=== PATIENT | female | born 1935 | race Caucasian/White ===

== ENCOUNTER 2020-05-28 15:02 | Inpatient (IN) ==
--- NOTE | 2020-05-28 15:41 | Emergency Department Note ---
History of Present Illness General Chief complaint: Abdominal Pain Stated complaint: LLQ Abd pain Time Seen by Provider: 05/28/20 15:13 Source: patient History of Present Illness Provider complaint: Abdominal discomfort Onset (ago): hour(s) Location: abdomen Radiation: non-radiation Severity: mild Quality: + other (Discomfort) Relieved By: + none Associated symptoms: + other (Constipation for 3 days); no chest pain, no cough, no fever/chills, no headaches, no nausea/vomiting and no shortness of breath This is an 85-year-old female who presents with lower abdominal discomfort. She states it is not really a pain. She has had it all morning. She states that it is associated with constipation and she has not had a bowel movement for 3 days. She denies any nausea or vomiting, fever, chest pain, shortness of breath or urinary symptoms. She has had no cough or cold symptoms or known exposure to COVID-19. Home Medications Medication Instructions Recorded Confirmed Type atenolol 25 mg PO DAILY 04/18/18 05/14/20 History furosemide 20 mg PO DAILY 04/18/18 05/14/20 History amlodipine 2.5 mg tablet 2.5 mg PO DAILY 03/04/20 05/14/20 History aspirin 81 mg chewable tablet 81 mg PO DAILY 03/04/20 05/14/20 History clopidogrel 75 mg tablet 75 mg PO DAILY 03/04/20 05/14/20 History methenamine hippurate 1 gram tablet 1 g PO BID 03/04/20 05/14/20 History multivitamin 1 tab PO DAILY 03/04/20 05/14/20 History polyethylene glycol 3350 8.5 gram 8.5 g PO DAILY PRN 03/04/20 05/14/20 History oral powder packet pravastatin 10 mg tablet 10 mg PO DAILY 03/04/20 05/14/20 History conjugated estrogens 0.625 mg/gram 0.3125 mg VAGINAL DAILY #30 g 05/14/20 Rx vaginal cream conjugated estrogens 0.625 mg/gram 0.3125 mg VAGINAL DAILY #30 g 05/14/20 05/14/20 Rx vaginal cream Allergies Allergy/AdvReac Type Severity Reaction Status Date / Time codeine Allergy Unknown Verified 05/14/20 10:07 Penicillins Allergy Joint Pain Unverified 05/14/20 10:07 simvastatin Allergy Verified 05/14/20 10:07 clams AdvReac Mild Nausea Verified 05/14/20 10:07 tramadol AdvReac Unknown Unknown Verified 05/14/20 10:07 wine(red) Allergy Severe Unknown Uncoded 05/14/20 10:07 Past Med/Surg History Medical History (Updated 05/28/20 @ 17:27 by Luis Daniel Taylor MD) CAD (coronary artery disease) HLD (hyperlipidemia) HTN (hypertension) Hyponatremia Stroke No residual deficits Surgical History Status post appendectomy Status post cardiac pacemaker procedure Status post hysterectomy Family History Other Coronary heart disease Social History Smoking Status: Never smoker Hx Alcohol Use: Yes (1 drink of bourbon per week) Hx Substance Use: No Preferred Language: Maori Communication Ability: Effective Beliefs That Will Affect Care: None Current Living Situation: Other Current Living Situation Comment: currently staying with [facility] but lives in independent living apartment in [place] Feels Safe at Home: Yes Assistive Devices: Walker Review of Systems See HPI for pertinent positives & negatives. and A total of 10 systems reviewed and were otherwise negative Physical Exam Vital Signs Vital Signs - 24 hr 05/28/20 15:07 05/28/20 15:12 05/28/20 15:15 Temperature 36.7 C Temperature Source Oral Pulse Rate 69 76 69 Pulse Rate [Apical] Pulse Rate from SpO2 Sensor 68 Respiratory Rate 18 18 20 Respiratory Effort / Characteristics Non-Labored Spontaneous Respiratory Depth Normal Respiratory Pattern Regular Blood Pressure 135/59 L 135/59 L Blood Pressure [Left Arm] Blood Pressure Mean 97 84 Blood Pressure Mean [Left Arm] Pulse Oximetry 98 100 Oxygen Delivery Method Room Air Sepsis Recent Fever Within 48 Hours No Sepsis New/Unexplained Change in Mental Status No Sepsis Action Taken by Nursing No Action Required 05/28/20 15:21 05/28/20 15:30 05/28/20 16:00 Temperature Temperature Source Pulse Rate 69 69 70 Pulse Rate [Apical] 69 Pulse Rate from SpO2 Sensor 80 Respiratory Rate 20 17 22 Respiratory Effort / Characteristics Non-Labored Spontaneous Respiratory Depth Normal Respiratory Pattern Regular Blood Pressure Blood Pressure [Left Arm] 135/59 L Blood Pressure Mean Blood Pressure Mean [Left Arm] 84 Pulse Oximetry 100 99 Oxygen Delivery Method Room Air Sepsis Recent Fever Within 48 Hours Sepsis New/Unexplained Change in Mental Status Sepsis Action Taken by Nursing 05/28/20 16:30 05/28/20 17:07 05/28/20 17:11 Temperature Temperature Source Pulse Rate 68 73 75 Pulse Rate [Apical] Pulse Rate from SpO2 Sensor Respiratory Rate 15 17 17 Respiratory Effort / Characteristics Respiratory Depth Respiratory Pattern Blood Pressure 117/42 L Blood Pressure [Left Arm] Blood Pressure Mean 60 Blood Pressure Mean [Left Arm] Pulse Oximetry Oxygen Delivery Method Sepsis Recent Fever Within 48 Hours Sepsis New/Unexplained Change in Mental Status Sepsis Action Taken by Nursing 05/28/20 17:30 05/28/20 17:31 Temperature Temperature Source Pulse Rate 68 67 Pulse Rate [Apical] Pulse Rate from SpO2 Sensor 67 67 Respiratory Rate 21 18 Respiratory Effort / Characteristics Respiratory Depth Respiratory Pattern Blood Pressure 122/59 L Blood Pressure [Left Arm] Blood Pressure Mean 90 Blood Pressure Mean [Left Arm] Pulse Oximetry 97 97 Oxygen Delivery Method Sepsis Recent Fever Within 48 Hours Sepsis New/Unexplained Change in Mental Status Sepsis Action Taken by Nursing Constitutional: Vital signs reviewed. Eyes: Pupils are equal round reactive to light. Conjunctiva are noninjected. ENT: Pharynx is clear without erythema or exudate. Mucous membranes are moist. Neck supple without meningeal signs. Respiratory: Clear to auscultation bilaterally. Breath sounds are equal bilaterally. Cardiovascular: Regular rate and rhythm. No rubs or gallops. GI: Soft, nondistended with very mild suprapubic tenderness. No guarding. Bowel sounds are present. Musculoskeletal: No peripheral edema. No lower extremity tenderness. Integumentary: No cyanosis. or jaundice. Neurological: The patient is awake and alert. No focal deficits. Psychiatric: Normal affect. Not anxious appearing. Critical Care Time Critical Care Time: Yes Total Critical Care Time: 40 I have personally spent approximately 40 minutes of critical care time in the direct management of this patient. This includes bedside care, interpretation of diagnostic studies, and testing, discussion with consultants, patient, and family members, and other required patient management activities. These minutes are in excess of all separately billable procedures. Medical Decision Making Differential Diagnosis Constipation, fecal impaction, ileus, diverticulitis, obstipation Medical Records Attestation: I reviewed the patient's medical records. I did perform a limited focused review of portions of the patient's old chart on the electronic medical record. The patient has had no recent pertinent visits to this hospital. Home Medications Current Medication List: was personally reviewed by me Laboratory Data Attestation: I reviewed the patient's lab results. Result diagrams: 05/28/20 16:50 05/28/20 16:50 Lab Results 05/28/20 05/28/20 05/28/20 Range/Units 16:50 16:50 17:32 WBC 7.86 (4.8-10.8) K/uL RBC 2.23 L (4.2-5.4) M/uL Hgb 5.0 L* (12.0-16.0) g/dL Hct 17.0 L* (37-47) % MCV 76.2 L (80-100) fL MCH 22.4 L (25-34) pg MCHC 29.4 L (32-36) g/dL RDW Std Deviation 43.3 (36.4-46.3) fL RDW Coeff of Dorota 15.4 H (11.5-14.5) % Plt Count 363 (130-400) K/uL MPV 8.6 (7.4-10.4) fL Immature Gran % (Auto) 0.3 % Neut % (Auto) 66.7 % Lymph % (Auto) 15.5 % Gibson % (Auto) 13.5 % Eos % (Auto) 3.2 % Baso % (Auto) 0.8 % Neut # (Auto) 5.25 (1.4-6.5) K/uL Lymph # (Auto) 1.22 (1.2-3.4) K/uL Gibson # (Auto) 1.06 H (0.11-0.59) K/uL Eos # (Auto) 0.25 (0-0.5) K/uL Baso # (Auto) 0.06 (0-0.2) K/uL Immature Gran # (Auto) 0.02 (0.00-0.02) K/uL Polychromasia 1+ Hypochromasia Present Microcytosis Present Sodium 135 L (136-145) mmol/L Potassium 4.2 (3.5-5.1) mmol/L Chloride 105 (98-107) mmol/L Carbon Dioxide 25 (21-32) mmol/L Anion Gap 5.0 (3-11) BUN 17 (7-18) mg/dl Creatinine 0.68 (0.6-1.2) mg/dl Est Cr Clr Drug Dosing 54.4 ml/min Est GFR ( Amer) 91.2 Est GFR (Non-Af Amer) 78.6 BUN/Creatinine Ratio 25.8 H (10-20) Glucose 103 H (70-99) mg/dl Calcium 8.5 (8.5-10.1) mg/dl Total Bilirubin 0.2 (0.2-1) mg/dl AST 20 (15-37) U/L ALT 11 L (12-78) U/L Alkaline Phosphatase 55 (45-117) U/L Total Protein 6.0 L (6.4-8.2) gm/dl Albumin 3.0 L (3.4-5.0) gm/dl Globulin 3.0 (2.5-4.0) gm/dl Albumin/Globulin Ratio 1.0 (0.9-2) Lipase 81 (73-393) U/L Specimen Hemolysis COVID-19 Eval [facility] 05/28/20 Range/Units 17:34 WBC (4.8-10.8) K/uL RBC (4.2-5.4) M/uL Hgb (12.0-16.0) g/dL Hct (37-47) % MCV (80-100) fL MCH (25-34) pg MCHC (32-36) g/dL RDW Std Deviation (36.4-46.3) fL RDW Coeff of Dorota (11.5-14.5) % Plt Count (130-400) K/uL MPV (7.4-10.4) fL Immature Gran % (Auto) % Neut % (Auto) % Lymph % (Auto) % Gibson % (Auto) % Eos % (Auto) % Baso % (Auto) % Neut # (Auto) (1.4-6.5) K/uL Lymph # (Auto) (1.2-3.4) K/uL Gibson # (Auto) (0.11-0.59) K/uL Eos # (Auto) (0-0.5) K/uL Baso # (Auto) (0-0.2) K/uL Immature Gran # (Auto) (0.00-0.02) K/uL Polychromasia Hypochromasia Microcytosis Sodium (136-145) mmol/L Potassium (3.5-5.1) mmol/L Chloride (98-107) mmol/L Carbon Dioxide (21-32) mmol/L Anion Gap (3-11) BUN (7-18) mg/dl Creatinine (0.6-1.2) mg/dl Est Cr Clr Drug Dosing ml/min Est GFR ( Amer) Est GFR (Non-Af Amer) BUN/Creatinine Ratio (10-20) Glucose (70-99) mg/dl Calcium (8.5-10.1) mg/dl Total Bilirubin (0.2-1) mg/dl AST (15-37) U/L ALT (12-78) U/L Alkaline Phosphatase (45-117) U/L Total Protein (6.4-8.2) gm/dl Albumin (3.4-5.0) gm/dl Globulin (2.5-4.0) gm/dl Albumin/Globulin Ratio (0.9-2) Lipase (73-393) U/L Specimen Hemolysis COVID-19 Eval Order Crossmatch See Detail Imaging Data Radiologist's Impression: CT SCAN OF THE ABDOMEN AND PELVIS WITHOUT CONTRAST CLINICAL HISTORY: Lower abdominal pain COMPARISON STUDY: 05/07/2020 TECHNIQUE: CT scan of the abdomen and pelvis was performed from the lung bases to the proximal femurs. Images are reviewed in the axial, sagittal, and coronal planes. IV contrast was not administered for this examination. A dose lowering technique was utilized adhering to the principles of ALARA. CT DOSE: 979.25 mGycm FINDINGS: Lower chest: There is a hiatal hernia. There are dependent atelectatic changes. Liver: There are several subcentimeter hepatic hypodense, likely representing cysts. Gallbladder: Unremarkable. Spleen: Normal in size and attenuation. Pancreas: Unremarkable. Adrenal glands: Unremarkable. Kidneys: No renal, ureteral, or bladder calculi identified. Bowel: There are no transition zones indicate bowel obstruction. There is no evidence of acute diverticulitis. There are no findings to indicate acute appendicitis. Peritoneum: There is no intraperitoneal free air or abdominal ascites. Vasculature: The abdominal aorta is normal in course and caliber. Adenopathy: None. Pelvic viscera: There is gas in the bladder, likely iatrogenic. The uterus appears surgically absent. Skeletal structures: There is a prominent scoliosis. Degenerative changes are present within the spine. There is an old posterior back deformities left symphysis pubis. IMPRESSION: 1. No acute abdominal or pelvic findings 2. No evidence of bowel obstruction. No evidence of free air 3. No renal, ureteral, or bladder calculi identified 4. No acute inflammatory changes 5. Gas within the bladder, statistically iatrogenic. Clinical correlation a dvocated. ACT 112: Negative or not required by law. Electronically signed by: Timbo Zapata M.D. 05/28/2020 5:17 PM Dictated: 05/28/201711 Transcribed: 05/28/201711 ECG Data Attestation: I personally reviewed and interpreted this ECG as follows: Indication: + abdominal pain Rate (beats per minute): 69 Rhythm: + other (Paced rhythm) ECG Intervals/blocks: + Normal QT ECG Findings: + Q waves; no PVCs MDM Narrative I did evaluate the patient as noted above. Patient is presenting with constipation for 3 days with some mild discomfort in the lower abdomen. IV access was established. I did place an order for continuous cardiac monitoring. The monitor showed normal sinus rhythm at a rate of 68 bpm. I did order and personally review the patient's 12-lead EKG as described above. She has an atrial paced rhythm. I did order and review the patient's blood work as noted in the electronic medical record. Chemistries are unremarkable. Hemoglobin was reported as 5. White count is within normal limits. The patient is on Plavix and aspirin. Further history was obtained from the daughter who is now at the bedside. She states that the patient has been lethargic and a little bit more confused than usual over the past week. I did perform a rectal examination which showed guaiac positive melanotic stool. The patient was given IV Protonix and started on an IV drip. I did obtain informed consent from the patient's daughter, who is her healthcare proxy, for transfusion of 2 units packed RBCs. I did order a CT of the abdomen and pelvis. I did review the images myself as well as the radiology report as described above. There is no evidence of acute intra-abdominal process. I did discuss case with the hospitalist and senior case manager. She remains hemodynamically stable. Impression & Plan Acute upper gastrointestinal bleeding, Anemia due to acute blood loss Discharge Plan Visit Data Chief Complaint: Abdominal Pain Stated Complaint: LLQ Abd pain ED Provider: Luis Daniel Taylor Discharge Problem: Acute upper gastrointestinal bleeding, Anemia due to acute blood loss Patient Disposition: Being Evaluated by Hospitalist Forms Stand Alone Forms: [facility] Prescriptions Prescriptions: No Action Premarin 0.625 mg/gram cream 0.3125 mg vaginal DAILY Qty: 30 RF: 11 amlodipine 2.5 mg tablet 2.5 mg PO DAILY RF: 0 aspirin 81 mg tablet,chewable 81 mg PO DAILY RF: 0 clopidogrel 75 mg tablet 75 mg PO DAILY RF: 0 methenamine hippurate 1 gram tablet 1 g PO BID RF: 0 multivitamin Tablet 1 tab PO DAILY RF: 0 polyethylene glycol 3350 8.5 gram powder in packet 8.5 g PO DAILY PRNRF: 0 pravastatin 10 mg tablet 10 mg PO DAILY RF: 0 Premarin 0.625 mg/gram cream 0.3125 mg vaginal DAILY Qty: 30 RF: 11 atenolol 25 mg Tablet 25 mg PO DAILY RF: 0 furosemide 20 mg Tablet 20 mg PO DAILY RF: 0 Referrals Referrals: Sumit Reno [facility] [Primary Care Provider] -
[2020-05-28 17:14] LABS: Mean Corpuscular Hemoglobin 22.4 pg (25-34); Mean Corpuscular Hgb Conc 29.4 g/dL (32-36); Mean Corpuscular Volume 76.2 fL (80-100); Mean Platelet Volume 8.6 fL (7.4-10.4); Platelet Count 363 K/uL (130-400); RDW Coefficient of Variation 15.4 % (11.5-14.5); RDW Standard Deviation 43.3 fL (36.4-46.3); Red Blood Count 2.23 M/uL (4.2-5.4); White Blood Count 7.86 K/uL (4.8-10.8)
--- NOTE | 2020-05-28 17:18 | CT Scan Report ---
CT SCAN OF THE ABDOMEN AND PELVIS WITHOUT CONTRAST CLINICAL HISTORY: Lower abdominal pain COMPARISON STUDY: 05/07/2020 TECHNIQUE: CT scan of the abdomen and pelvis was performed from the lung bases to the proximal femurs . Images are reviewed in the axial, sagittal, and coronal planes. IV contrast was not administered fo r this examination. A dose lowering technique was utilized adhering to the principles of ALARA. CT DOSE: 979.25 mGycm FINDINGS: Lower chest: There is a hiatal hernia. There are dependent atelectatic changes. Liver: There are several subcentimeter hepatic hypodense, likely representing cysts. Gallbladder: Unremarkable. Spleen: Normal in size and attenuation. Pancreas: Unremarkable. Adrenal glands: Unremarkable. Kidneys: No renal, ureteral, or bladder calculi identified. Bowel: There are no transition zones indicate bowel obstruction. There is no evidence of acute divert iculitis. There are no findings to indicate acute appendicitis. Peritoneum: There is no intraperitoneal free air or abdominal ascites. Vasculature: The abdominal aorta is normal in course and caliber. Adenopathy: None. Pelvic viscera: There is gas in the bladder, likely iatrogenic. The uterus appears surgically absent. Skeletal structures: There is a prominent scoliosis. Degenerative changes are present within the spin e. There is an old posterior back deformities left symphysis pubis. IMPRESSION: 1. No acute abdominal or pelvic findings 2. No evidence of bowel obstruction. No evidence of free air 3. No renal, ureteral, or bladder calculi identified 4. No acute inflammatory changes 5. Gas within the bladder, statistically iatrogenic. Clinical correlation advocated. ACT 112: Negative or not required by law. Electronically signed by: Timbo Zapata M.D. 05/28/2020 5:17 PM
[2020-05-28] MEDS ORDERED: SODIUM CHLORIDE 0.9% 250 ML IV PRN ×3 (17:22→20:41)
[2020-05-28] MEDS ORDERED: PANTOprazole 80 MG in DEXTROSE 5% 100 ML IV SCH (17:30)
[2020-05-28 17:34] LABS: Basophils # (auto) 0.06 K/uL (0-0.2); Basophils % (auto) 0.8 %; Eosinophils # (auto) 0.25 K/uL (0-0.5); Eosinophils % (auto) 3.2 %; Hypochromasia Present; Immature Granulocytes # (auto) 0.02 K/uL (0.00-0.02); Immature Granulocytes % (auto) 0.3 %; Lymphocytes # (auto) 1.22 K/uL (1.2-3.4); Lymphocytes % (auto) 15.5 %; Microcytosis Present; Monocytes # (auto) 1.06 K/uL (0.11-0.59); Monocytes % (auto) 13.5 %; Neutrophils # (auto) 5.25 K/uL (1.4-6.5); Neutrophils % (auto) 66.7 %; Polychromasia 1+
[2020-05-28 17:40] LABS: BUN Creatinine Ratio 25.8 (10-20); Bilirubin,Total 0.2 mg/dl (0.2-1); Calcium 8.5 mg/dl (8.5-10.1); Creatinine Clr Calc Pharmacy 54.4 ml/min; Est GFR (African American) 91.2; Est GFR (Non-African American) 78.6; Potassium 4.2 mmol/L (3.5-5.1)
--- NOTE | 2020-05-28 17:55 | History & Physical Report ---
Date of Service May 28, 2020 Assessment & Plan (1) Anemia due to acute blood loss: -Admit to med surg with tele -Hold antiplatelets- currently taking both asa and plavix, as well as ibuprofen for frozen shoulder per med rec from [facility] - unsure why still taking plavix since CVA was 2 years ago. Will need to discuss with neurology. Consider consult -dc all NSAIDs permanently -Hgb= 5.0, Hct =17 -PRBCs x1 ordered in the ER, will order total of 2 units for now, follow cbc after both transfusions complete and follow am labs -Protonix gtt -Iron studies added on -GI consulted, Dr. Shanks- last colonoscopy within the past 10 years, noted as normal, done in [place]. Has never had EGD per knowledge -Allow clears for now, NPO except sips and chips after midnight in case of need for EGD tomorrow (2) Dysarthria: - s/p CVA in Apr 2018 - chronic, slightly slowed and minimally slurred on admission, daughter reports currently at baseline. - Does not have local neurologist as she just moved here from [place] in Dec 2019. (3) Hypertension: - Holding home antihypertensives with blood pressure borderline on admission. (4) CAD (coronary artery disease): Review of previous scanned in records shows a h/o acute WI with stent placement in RCA in 1999 - Hold asa for now secondary to gi bleed as above -holding atenolol as above continue statin (5) CVA (cerebral vascular accident): -History of such, on aspirin and Plavix therapy from stroke which is noted in EMR from Apr 2018. Will hold antiplatelet medications At that time, Neuro had recommended CHANGING ASA to Plavix--> it seems she has remained on DAPT since then -recommend restarting Plavix only after GIB resolves (6) Expressive aphasia: - Secondary to hx of CVA as above (7) Chronic UTI: - Follows with Dr. 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 Her daughter is present with her at bedside and supports the history. Patient notes that she has had been having abdominal pain for the past week or so, and has also been chronically constipated, and cannot recall the last time that she had a bowel movement. Per ER report patient is guaiac positive with melena on rectal exam. Patient denies any diminished appetite, oral intake is fine, no nausea or vomiting. Patient's daughter had her home for [place] and at that point time the patient was not near as pale as she is today. She has been taking medications including aspirin 81 mg, Plavix 75 mg and at least 400 mg of ibuprofen a day for right frozen shoulder, occasionally 600 mg daily. Patient typically ambulates with the use of a walker but when she is not feeling up to it uses a wheelchair. Patient's daughter had her home for [place] and at that point time the patient was not near as pale as she is today. She admits to lightheadedness and dizziness when going from a sitting to standing position. Patient reports that her last colonoscopy was within the past 10 years but had this done in [place], it was normal to her recollection. Patient is new to the area as she just moved here from [place] in December 2019 and follows with PCP at [facility]. Hemoglobin was found to be 5.0 in the ER, transfusion PRBC x2 units ordered. Likely an upper GI bleed from use of NSAIDs plus antiplatelet medications. CT of the abdomen/pelvis negative for acute findings. Consult GI. Allergies Allergy/AdvReac Type Severity Reaction Status Date / Time codeine Allergy Unknown . Verified 05/28/20 18:01 Penicillins Allergy Joint Pain Verified 05/28/20 18:01 simvastatin Allergy . Verified 05/28/20 18:01 clams AdvReac Mild Nausea Verified 05/28/20 18:01 tramadol AdvReac Unknown Unknown Verified 05/28/20 18:01 wine(red) Allergy Severe Unknown Uncoded 05/28/20 18:01 Home Medications Medication Instructions Recorded Confirmed Type atenolol 25 mg PO DAILY 04/18/18 05/28/20 History furosemide 20 mg PO DAILY 04/18/18 05/28/20 History amlodipine 2.5 mg tablet 2.5 mg PO DAILY 03/04/20 05/28/20 History aspirin 81 mg chewable tablet 81 mg PO DAILY 03/04/20 05/28/20 History clopidogrel 75 mg tablet 75 mg PO DAILY 03/04/20 05/28/20 History methenamine hippurate 1 gram tablet 1 g PO BID 03/04/20 05/28/20 History multivitamin 1 tab PO DAILY 03/04/20 05/28/20 History polyethylene glycol 3350 8.5 gram 8.5 g PO DAILY 03/04/20 05/28/20 History oral powder packet acetaminophen 1,000 mg PO TID 05/28/20 05/28/20 History docusate sodium [Colace] 100 mg PO DAILY PRN 05/28/20 05/28/20 History guaifenesin 200 mg PO Q8H PRN 05/28/20 05/28/20 History ibuprofen 200 mg PO TID 05/28/20 05/28/20 History peg 400-propylene glycol [Systane 1 drp OPB QAM 05/28/20 05/28/20 History (propylene glycol)] Past Med/Surg History Medical History (Updated 05/28/20 @ 21:10 by Marichuy Reed MD) Atrophic vaginitis CAD (coronary artery disease) HLD (hyperlipidemia) HTN (hypertension) Hyponatremia Incomplete bladder emptying Stroke No residual deficits Surgical History Status post appendectomy Status post cardiac pacemaker procedure Status post hysterectomy Family History Other Coronary heart disease Social History Smoking Status: Never smoker Hx Alcohol Use: No Hx Substance Use: No Preferred Language: Greek Communication Ability: Effective Beliefs That Will Affect Care: None Current Living Situation: Senior Care Current Living Situation Comment: currently staying with dtgr but lives in independent living apartment in [place] Feels Safe at Home: Yes Safety Concerns: Feels Safe At This Time Assistive Devices: Walker Review of Systems Review of Systems: Constitutional: No fever, sweats or chills, + lightheadedness and dizziness with standing, + lethargy, + weakness Eyes: No diplopia, no worsening or blurred vision ENT: normal hearing, no trouble swallowing Respiratory: No cough, sputum, dyspnea at rest or on exertion Cardiovascular: No chest pain, tightness or palpitations Abdomen: + Pain, + constipation, no nausea, vomiting, diarrhea, Musculoskeletal: + Right frozen shoulder causing chronic pain in this area, no other joint pain, calf pain, or swelling Neurologic: + Generalized weakness, no numbness/tingling,+ balance problems uses a walker at baseline Psychiatric: No anxiety or depression Skin: No rash or itch Physical Exam Physical Exam: General: awake, alert, no apparent distress, + pallor Head: Normocephalic, atraumatic ENT: PERRL, EOMI, + conjunctival pallor, no pharyngeal exudate, mucous membranes slightly dry Chest: Clear to auscultation, on room air, no adventitious breath sounds Cardiac: Regular rate and rhythm, no murmur, no JVD, normal peripheral pulses, good capillary refill Abdominal: NABS x 4 quadrants, soft, nondistended, + tender to palpation in suprapubic region, no rebound or guarding Extremities: Normal inspection, 1+ nonpitting peripheral edema BLE, no erythema, calfs nontender to palpation Psych: Normal mood and affect Neuro: AAO x 3, slowed speech, slightly slurred but clear and daughter reports that this is at baseline s/p cva, strength intact bilaterally and rated 5/5, no gross motor deficits, no peripheral sensory deficits Results & Data Results & Data ([facility]) Vital Signs (Past 12 Hours) Vital Signs Temp Pulse Pulse Resp BP BP Pulse Ox 05/28/20 17:31 67 18 122/59 L 97 05/28/20 17:30 68 21 97 05/28/20 17:11 75 17 117/42 L 05/28/20 17:07 73 17 05/28/20 16:30 68 15 05/28/20 16:00 70 22 99 05/28/20 15:30 69 17 05/28/20 15:21 69 69 20 135/59 L 100 05/28/20 15:15 36.7 C 69 20 135/59 L 100 05/28/20 15:12 76 18 98 05/28/20 15:07 69 18 135/59 L Laboratory Results 05/28/20 05/28/20 05/28/20 Range/Units 19:05 19:05 18:10 WBC (4.8-10.8) K/uL RBC (4.2-5.4) M/uL Hgb (12.0-16.0) g/dL Hct (37-47) % MCV (80-100) fL MCH (25-34) pg MCHC (32-36) g/dL RDW Std Deviation (36.4-46.3) fL RDW Coeff of Dorota (11.5-14.5) % Plt Count (130-400) K/uL MPV (7.4-10.4) fL Immature Gran % (Auto) % Neut % (Auto) % Lymph % (Auto) % Nye % (Auto) % Eos % (Auto) % Baso % (Auto) % Neut # (Auto) (1.4-6.5) K/uL Lymph # (Auto) (1.2-3.4) K/uL [place]ye # (Auto) (0.11-0.59) K/uL Eos # (Auto) (0-0.5) K/uL Baso # (Auto) (0-0.2) K/uL Immature Gran # (Auto) (0.00-0.02) K/uL Polychromasia Hypochromasia Microcytosis PT (9.0-12.0) Seconds INR (0.9-1.1) APTT (21.0-31.0) Seconds PTT Ratio Sodium (136-145) mmol/L Potassium (3.5-5.1) mmol/L Chloride (98-107) mmol/L Carbon Dioxide (21-32) mmol/L Anion Gap (3-11) BUN (7-18) mg/dl Creatinine (0.6-1.2) mg/dl Est Cr Clr Drug Dosing ml/min Est GFR ( Amer) Est GFR (Non-Af Amer) BUN/Creatinine Ratio (10-20) Glucose (70-99) mg/dl Calcium (8.5-10.1) mg/dl Iron Cancelled 17 L (35-150) mcg/dl Transferrin 287 (200-360) mg/dl Total Bilirubin (0.2-1) mg/dl AST (15-37) U/L ALT (12-78) U/L Alkaline Phosphatase (45-117) U/L Total Protein (6.4-8.2) gm/dl Albumin (3.4-5.0) gm/dl Globulin (2.5-4.0) gm/dl Albumin/Globulin Ratio (0.9-2) Lipase (73-393) U/L Specimen Hemolysis COVID-19 Eval Order SARS-CoV-2, RNA, NAAT (NEGATIVE) Blood Type Blood Type Recheck Antibody Screen Crossmatch 05/28/20 05/28/20 05/28/20 Range/Units 18:06 17:34 17:34 WBC (4.8-10.8) K/uL RBC (4.2-5.4) M/uL Hgb (12.0-16.0) g/dL Hct (37-47) % MCV (80-100) fL MCH (25-34) pg MCHC (32-36) g/dL RDW Std Deviation (36.4-46.3) fL RDW Coeff of Dorota (11.5-14.5) % Plt Count (130-400) K/uL MPV (7.4-10.4) fL Immature Gran % (Auto) % Neut % (Auto) % Lymph % (Auto) % [place] % (Auto) % Eos % (Auto) % Baso % (Auto) % Neut # (Auto) (1.4-6.5) K/uL Lymph # (Auto) (1.2-3.4) K/uL Nye # (Auto) (0.11-0.59) K/uL Eos # (Auto) (0-0.5) K/uL Baso # (Auto) (0-0.2) K/uL Immature Gran # (Auto) (0.00-0.02) K/uL Polychromasia Hypochromasia Microcytosis PT 11.5 (9.0-12.0) Seconds INR 1.1 (0.9-1.1) APTT 29.3 (21.0-31.0) Seconds PTT Ratio 1.1 Sodium (136-145) mmol/L Potassium (3.5-5.1) mmol/L Chloride (98-107) mmol/L Carbon Dioxide (21-32) mmol/L Anion Gap (3-11) BUN (7-18) mg/dl Creatinine (0.6-1.2) mg/dl Est Cr Clr Drug Dosing ml/min Est GFR ( Amer) Est GFR (Non-Af Amer) BUN/Creatinine Ratio (10-20) Glucose (70-99) mg/dl Calcium (8.5-10.1) mg/dl Iron (35-150) mcg/dl Transferrin (200-360) mg/dl Total Bilirubin (0.2-1) mg/dl AST (15-37) U/L ALT (12-78) U/L Alkaline Phosphatase (45-117) U/L Total Protein (6.4-8.2) gm/dl Albumin (3.4-5.0) gm/dl Globulin (2.5-4.0) gm/dl Albumin/Globulin Ratio (0.9-2) Lipase (73-393) U/L Specimen Hemolysis COVID-19 Eval Order SARS-CoV-2, RNA, NAAT (NEGATIVE) Blood Type O Positive Blood Type Recheck O Positive Antibody Screen NEGATIVE Crossmatch See Detail 05/28/20 05/28/20 05/28/20 Range/Units 17:32 17:32 16:50 WBC 7.86 (4.8-10.8) K/uL RBC 2.23 L (4.2-5.4) M/uL Hgb 5.0 L* (12.0-16.0) g/dL Hct 17.0 L* (37-47) % MCV 76.2 L (80-100) fL MCH 22.4 L (25-34) pg MCHC 29.4 L (32-36) g/dL RDW Std Deviation 43.3 (36.4-46.3) fL RDW Coeff of Dorota 15.4 H (11.5-14.5) % Plt Count 363 (130-400) K/uL MPV 8.6 (7.4-10.4) fL Immature Gran % (Auto) 0.3 % Neut % (Auto) 66.7 % Lymph % (Auto) 15.5 % [place]ye % (Auto) 13.5 % Eos % (Auto) 3.2 % Baso % (Auto) 0.8 % Neut # (Auto) 5.25 (1.4-6.5) K/uL Lymph # (Auto) 1.22 (1.2-3.4) K/uL [place]ye # (Auto) 1.06 H (0.11-0.59) K/uL Eos # (Auto) 0.25 (0-0.5) K/uL Baso # (Auto) 0.06 (0-0.2) K/uL Immature Gran # (Auto) 0.02 (0.00-0.02) K/uL Polychromasia 1+ Hypochromasia Present Microcytosis Present PT (9.0-12.0) Seconds INR (0.9-1.1) APTT (21.0-31.0) Seconds PTT Ratio Sodium (136-145) mmol/L Potassium (3.5-5.1) mmol/L Chloride (98-107) mmol/L Carbon Dioxide (21-32) mmol/L Anion Gap (3-11) BUN (7-18) mg/dl Creatinine (0.6-1.2) mg/dl Est Cr Clr Drug Dosing ml/min Est GFR ( Amer) Est GFR (Non-Af Amer) BUN/Creatinine Ratio (10-20) Glucose (70-99) mg/dl Calcium (8.5-10.1) mg/dl Iron (35-150) mcg/dl Transferrin (200-360) mg/dl Total Bilirubin (0.2-1) mg/dl AST (15-37) U/L ALT (12-78) U/L Alkaline Phosphatase (45-117) U/L Total Protein (6.4-8.2) gm/dl Albumin (3.4-5.0) gm/dl Globulin (2.5-4.0) gm/dl Albumin/Globulin Ratio (0.9-2) Lipase (73-393) U/L Specimen Hemolysis COVID-19 Eval Order Covid19 [facility] SARS-CoV-2, RNA, NAAT NEGATIVE (NEGATIVE) Blood Type Blood Type Recheck Antibody Screen Crossmatch 05/28/20 Range/Units 16:50 WBC (4.8-10.8) K/uL RBC (4.2-5.4) M/uL Hgb (12.0-16.0) g/dL Hct (37-47) % MCV (80-100) fL MCH (25-34) pg MCHC (32-36) g/dL RDW Std Deviation (36.4-46.3) fL RDW Coeff of Dorota (11.5-14.5) % Plt Count (130-400) K/uL MPV (7.4-10.4) fL Immature Gran % (Auto) % Neut % (Auto) % Lymph % (Auto) % [place] % (Auto) % Eos % (Auto) % Baso % (Auto) % Neut # (Auto) (1.4-6.5) K/uL Lymph # (Auto) (1.2-3.4) K/uL Nye # (Auto) (0.11-0.59) K/uL Eos # (Auto) (0-0.5) K/uL Baso # (Auto) (0-0.2) K/uL Immature Gran # (Auto) (0.00-0.02) K/uL Polychromasia Hypochromasia Microcytosis PT (9.0-12.0) Seconds INR (0.9-1.1) APTT (21.0-31.0) Seconds PTT Ratio Sodium 135 L (136-145) mmol/L Potassium 4.2 (3.5-5.1) mmol/L Chloride 105 (98-107) mmol/L Carbon Dioxide 25 (21-32) mmol/L Anion Gap 5.0 (3-11) BUN 17 (7-18) mg/dl Creatinine 0.68 (0.6-1.2) mg/dl Est Cr Clr Drug Dosing 54.4 ml/min Est GFR ( Amer) 91.2 Est GFR (Non-Af Amer) 78.6 BUN/Creatinine Ratio 25.8 H (10-20) Glucose 103 H (70-99) mg/dl Calcium 8.5 (8.5-10.1) mg/dl Iron (35-150) mcg/dl Transferrin (200-360) mg/dl Total Bilirubin 0.2 (0.2-1) mg/dl AST 20 (15-37) U/L ALT 11 L (12-78) U/L Alkaline Phosphatase 55 (45-117) U/L Total Protein 6.0 L (6.4-8.2) gm/dl Albumin 3.0 L (3.4-5.0) gm/dl Globulin 3.0 (2.5-4.0) gm/dl Albumin/Globulin Ratio 1.0 (0.9-2) Lipase 81 (73-393) U/L Specimen Hemolysis COVID-19 Eval Order SARS-CoV-2, RNA, NAAT (NEGATIVE) Blood Type Blood Type Recheck Antibody Screen Crossmatch Diagnostic Findings CT SCAN OF THE ABDOMEN AND PELVIS WITHOUT CONTRAST CLINICAL HISTORY: Lower abdominal pain COMPARISON STUDY: 05/07/2020 TECHNIQUE: CT scan of the abdomen and pelvis was performed from the lung bases to the proximal femurs. Images are reviewed in the axial, sagittal, and coronal planes. IV contrast was not administered for this examination. A dose lowering technique was utilized adhering to the principles of ALARA. CT DOSE: 979.25 mGycm FINDINGS: Lower chest: There is a hiatal hernia. There are dependent atelectatic changes. Liver: There are several subcentimeter hepatic hypodense, likely representing cysts. Gallbladder: Unremarkable. Spleen: Normal in size and attenuation. Pancreas: Unremarkable. Adrenal glands: Unremarkable. Kidneys: No renal, ureteral, or bladder calculi identified. Bowel: There are no transition zones indicate bowel obstruction. There is no evidence of acute diverticulitis. There are no findings to indicate acute appendicitis. Peritoneum: There is no intraperitoneal free air or abdominal ascites. Vasculature: The abdominal aorta is normal in course and caliber. Adenopathy: None. Pelvic viscera: There is gas in the bladder, likely iatrogenic. The uterus appears surgically absent. Skeletal structures: There is a prominent scoliosis. Degenerative changes are present within the spine. There is an old posterior back deformities left symphysis pubis. IMPRESSION: 1. No acute abdominal or pelvic findings 2. No evidence of bowel obstruction. No evidence of free air 3. No renal, ureteral, or bladder calculi identified 4. No acute inflammatory changes 5. Gas within the bladder, statistically iatrogenic. Clinical correlation advocated. Code Status & VTE Plan Code Status DNR/DNI-discussed with the patient and her daughter at bedside Supervising Physician Co-Signing Physician Notes PA Supervision Note: I personally saw and examined the patient. I verified all vega points and agree with PRASHANT Laughlin with the following exceptions and/or additions: Pt is an 85 yo female with a h/o CAD s/p RCA stent in 1999, PPM for symptomatic bradycardia, CVA, HTN, recurrent UTI, here with worsening lethargy, constipation x 3 days, increased confusion as per daughter, found ot have a hgb of 5.0. FOund to have melanotic stool on ED MD exam. CT abd/pel negative. History and ROS reviewed as above Vitals reviewed NAD, alert, awake ,oriented to persona and place RRR no mgr CTAB no wcr Abd +BS soft NT ND Ext trace pitting edema Labs and rads reviewed 85 yo female here with lethargy, constipation, and severe anemia Changes made to PRASHANT's note as above -transfuse 2 units pRBCs -follow CBC GI consult for EGD changed bid IV PPI to PPI gtt given acute bleeding/melena on exam holding Plavix, ASA dc ASA and NSAIDs permanently and should only be on Plavix moving forward after GIB stopped PG Care Time/CCT Total # of Minutes Spent Total Time Spent with Patient: Total time spent is greater than 50% in coordination of care (as documented) at patient's floor/unit and/or counseling patient: Coding Level of Care Code 38707 Initial Inpt Care Lvl 3 Diagnoses Anemia due to acute blood loss D62 Dysarthria R47.1 Hypertension I10 Hypertension type: essential hypertension CAD (coronary artery disease) I25.10 Associated angina: without angina Coronary Disease-Associated Artery/Lesion type: [place] artery [place] vs. transplanted heart: [place] heart CVA (cerebral vascular accident) I63.9 Expressive aphasia R47.01 Chronic UTI N39.0 Incomplete bladder emptying R33.9 Atrophic vaginitis N95.2 Status post cardiac pacemaker procedure Z95.0 DVT prophylaxis Z29.9 (1) CAD (coronary artery disease) Associated angina: without angina Coronary Disease-Associated Artery/Lesion type: [place] artery [place] vs. transplanted heart: [place] heart Qualified Code(s): I25.10 - Atherosclerotic heart disease of [place] coronary artery without angina pectoris (2) Hypertension Hypertension type: essential hypertension Qualified Code(s): I10 - Essential (primary) hypertension
[2020-05-28 17:57] LABS: INR 1.1 (0.9-1.1); Partial Thromboplastin Ratio 1.1; Partial Thromboplastin Time 29.3 Seconds (21.0-31.0); Prothrombin Time 11.5 Seconds (9.0-12.0)
[2020-05-28] MEDS ORDERED: PANTOprazole 40 MG in DEXTROSE 5% 100 ML IV SCH (18:00)
[2020-05-28] MEDS ORDERED: ACETAMINOPHEN 325 MG TAB PO PRN (19:40)
[2020-05-28] MEDS ORDERED: ONDANSETRON INJ 2 MG/ML 2 ML VIAL IV PRN (19:40)
[2020-05-28] MEDS: LIDOCAINE 5% 1 PATCH TD SCH (20:22)
[2020-05-28] MEDS ORDERED: PANTOprazole 40 MG in SYRINGE 0 ML IV SCH (21:00)
[2020-05-28] MEDS ORDERED: DOCUSATE SODIUM 100 MG CAP PO PRN (21:33)
[2020-05-28 23:05] LABS: Hematocrit (blood only) 21.8 % (37-47); Hemoglobin 6.8 g/dL (12.0-16.0)
[2020-05-28 23:40] LABS: Folate (Folic Acid) > 20.00 ng/ml (>5.38); Vitamin B12 865 pg/ml (193-986)
[2020-05-29] MEDS: PANTOprazole 40 MG in DEXTROSE 5% 100 ML IV SCH ×5 (00:24→21:01)
[2020-05-29] MEDS ORDERED: Nursing to Pharmacy Communication SCH (00:30)
[2020-05-29 05:50] LABS: Basophils # (auto) 0.03 K/uL (0-0.2); Basophils % (auto) 0.4 %; Eosinophils # (auto) 0.29 K/uL (0-0.5); Eosinophils % (auto) 3.9 %; Hematocrit (blood only) 26.4 % (37-47); Hemoglobin 8.3 g/dL (12.0-16.0); Immature Granulocytes # (auto) 0.03 K/uL (0.00-0.02); Immature Granulocytes % (auto) 0.4 %; Lymphocytes # (auto) 1.02 K/uL (1.2-3.4); Lymphocytes % (auto) 13.6 %; Mean Corpuscular Hemoglobin 25.3 pg (25-34); Mean Corpuscular Hgb Conc 31.4 g/dL (32-36); Mean Corpuscular Volume 80.5 fL (80-100); Mean Platelet Volume 8.5 fL (7.4-10.4); Monocytes # (auto) 0.96 K/uL (0.11-0.59); Monocytes % (auto) 12.8 %; Neutrophils # (auto) 5.15 K/uL (1.4-6.5); Neutrophils % (auto) 68.9 %; Platelet Count 306 K/uL (130-400); RDW Coefficient of Variation 15.8 % (11.5-14.5); RDW Standard Deviation 46.9 fL (36.4-46.3); Red Blood Count 3.28 M/uL (4.2-5.4); White Blood Count 7.48 K/uL (4.8-10.8)
[2020-05-29 06:41] LABS: Albumin Globulin Ratio 1.1 (0.9-2); BUN Creatinine Ratio 27.3 (10-20); Bilirubin,Total 0.5 mg/dl (0.2-1); Calcium 8.4 mg/dl (8.5-10.1); Creatinine Clr Calc Pharmacy 69.7 ml/min; Est GFR (African American) 98.9; Est GFR (Non-African American) 85.4; Ferritin 8.6 ng/ml (8-388); Globulin 2.8 gm/dl (2.5-4.0); Potassium 3.4 mmol/L (3.5-5.1); Total Protein 5.8 gm/dl (6.4-8.2)
[2020-05-29] MEDS: ACETAMINOPHEN 500 MG TAB PO SCH ×3 (07:57→20:55)
[2020-05-29] MEDS: LIDOCAINE 5% 1 PATCH TD SCH (08:52)
--- NOTE | 2020-05-29 10:01 | Gastrointestinal Consultation ---
Date of Consultation May 29, 2020 Assessment & Plan (1) Anemia: (2) Melena: -Keep NPO -EGD today for further evaluation of symptoms -Continue to monitor H/H -Continue IV Protonix -Further recommendations pending results of testing Supervising Physician Co-Signing Physician Notes Agree with SUNNY Leon as above Abd: Soft, NT, ND, +BS Continue current therapy Proceed with EGD Consent obtained via daughter Priyank who is Tana's HCPOA History of Present Illness Reason for Consultation: Anemia, melena Attending Physician: Marichuy Reed MD History of Present Illness Patient is an 85 yo female with a PMH of CAD, HTN, HLD, Pacemaker, CVA with chronic deficit of dysarthria, sarcopenia, & hyponatremia who presented to [facility] with anemia. She tells me this morning that somewhere between telling her stories to multiple people, she feels she was misinterpreted about other symptoms. She tells me this morning that she has not had any abdominal pain. But due to her other symptoms, she presented to the ED at [facility]. Upon presentation, her hemoglobin was 5. No changes in appetite, hematemesis, nausea, or vomiting. She has been chronically taking ASA 81 mg daily and Plavix 75 mg daily since a stroke several years ago. Recently, she began taking Ibuprofen for a frozen shoulder. Reportedly, her last colonoscopy was in [place] within the past 10 years and was normal. No tobacco use. No pertinent family history. She resides at an [facility]. No known history of EGD in the past. Since admission, she has been transfused 2 units PRBCs. Her H/H is presently 8.3/26.4. She is currently on a Protonix drip. She is interested in pursuing an EGD for further evaluation. She is hesitant to believe she could potentially have an ulcer. Allergies Allergy/AdvReac Type Severity Reaction Status Date / Time codeine Allergy Unknown . Verified 05/28/20 18:01 Penicillins Allergy Joint Pain Verified 05/28/20 18:01 simvastatin Allergy . Verified 05/28/20 18:01 clams AdvReac Mild Nausea Verified 05/28/20 18:01 tramadol AdvReac Unknown Unknown Verified 05/28/20 18:01 wine(red) Allergy Severe Unknown Uncoded 05/28/20 18:01 Home Medications Medication Instructions Recorded Confirmed Type atenolol 25 mg PO DAILY 04/18/18 05/28/20 History furosemide 20 mg PO DAILY 04/18/18 05/28/20 History amlodipine 2.5 mg tablet 2.5 mg PO DAILY 03/04/20 05/28/20 History aspirin 81 mg chewable tablet 81 mg PO DAILY 03/04/20 05/28/20 History clopidogrel 75 mg tablet 75 mg PO DAILY 03/04/20 05/28/20 History methenamine hippurate 1 gram tablet 1 g PO BID 03/04/20 05/28/20 History multivitamin 1 tab PO DAILY 03/04/20 05/28/20 History polyethylene glycol 3350 8.5 gram 8.5 g PO DAILY 03/04/20 05/28/20 History oral powder packet acetaminophen 1,000 mg PO TID 05/28/20 05/28/20 History docusate sodium [Colace] 100 mg PO DAILY PRN 05/28/20 05/28/20 History guaifenesin 200 mg PO Q8H PRN 05/28/20 05/28/20 History ibuprofen 200 mg PO TID 05/28/20 05/28/20 History peg 400-propylene glycol [Systane 1 drp OPB QAM 05/28/20 05/28/20 History (propylene glycol)] Patient History Medical History Atrophic vaginitis CAD (coronary artery disease) HLD (hyperlipidemia) HTN (hypertension) Hyponatremia Incomplete bladder emptying Stroke No residual deficits Surgical History Status post appendectomy Status post cardiac pacemaker procedure Status post hysterectomy Family History Other Coronary heart disease Social History Smoking Status: Never smoker Hx Alcohol Use: No Hx Substance Use: No Preferred Language: Fijian Communication Ability: Effective Beliefs That Will Affect Care: None Current Living Situation: [facility] Current Living Situation Comment: currently staying with [facility] but lives in independent living apartment in [place] Feels Safe at Home: Yes Safety Concerns: Feels Safe At This Time Assistive Devices: Walker Review of Systems Constitutional: no fever, no chills and no weight loss Eyes: no problem reported Respiratory: + dyspnea on exertion; no cough Cardiovascular: no chest pain Gastrointestinal: + abdominal pain and + melena; no coffee ground emesis Musculoskeletal: no problem reported Integumentary: pale Neurologic: no problem reported Psychiatric: no problem reported Physical Exam Constitutional: well developed Respiratory: normal respiratory effort Cardiovascular: Extremities: no edema Gastrointestinal (Abdomen): Inspection/Auscultation: abdomen normal to inspec tion Musculoskeletal: Head/Neck/Chest: normocephalic Skin: + pallor Neurologic: dysarthria Psychiatric: A+Ox3, euthymic affect Results & Data ([facility]) Vital Signs (Past 12 Hours) Vital Signs Temp Pulse Pulse Resp BP BP Pulse Ox 05/29/20 07:50 36.3 C L 62 14 146/72 H 98 05/29/20 07:22 63 05/29/20 03:29 36.5 C 60 16 133/61 98 05/29/20 03:11 36.6 C 70 16 133/61 99 05/29/20 03:10 36.6 C 70 16 133/61 99 05/29/20 02:48 36.4 C L 61 18 137/74 98 05/29/20 01:52 36.5 C 70 16 133/72 98 05/29/20 00:59 69 05/29/20 00:52 36.5 C 72 16 121/72 95 05/29/20 00:22 36.5 C 65 18 125/69 100 05/29/20 00:07 36.4 C L 62 16 121/68 99 05/28/20 23:52 36.4 C L 65 18 118/81 98 05/28/20 23:06 36.7 C 60 16 117/57 L 100 05/28/20 22:29 36.8 C 70 16 117/57 L 95 05/28/20 22:07 36.8 C 70 16 117/57 L 95 PG Care Time/CCT Total # of Minutes Spent Total Time Spent with Patient: Total time spent is greater than 50% in coordination of care (as documented) at patient's floor/unit and/or counseling patient: Coding Level of Care Code 24276 Initial Inpt Care Lvl 3 Diagnoses Anemia D64.9 Melena K92.1
[2020-05-29] MEDS: POTASSIUM CHLORIDE / WTR 10 MEQ/100 ML PLCT IV SCH ×2 (10:12→11:03)
--- NOTE | 2020-05-29 11:47 | Anesthesiology Consultation ---
Date of Service May 29, 2020 Assessment & Plan (1) Encounter for pre-operative examination: Chart Review Chart Review: Acceptable Risk for Surgery and Patient NOT seen in Pre Admission Testing Consults Requested none History Surgery Operation Date: 05/29/20 12:45 Proposed Procedures p Esophagogastroduodenoscopy Dr Dimitris Javed Case, DO Height/Weight Height: 5 ft 3 in Weight: 69.1 kg Allergies Allergy/AdvReac Type Severity Reaction Status Date / Time codeine Allergy Unknown . Verified 05/28/20 18:01 Penicillins Allergy Joint Pain Verified 05/28/20 18:01 simvastatin Allergy . Verified 05/28/20 18:01 clams AdvReac Mild Nausea Verified 05/28/20 18:01 tramadol AdvReac Unknown Unknown Verified 05/28/20 18:01 wine(red) Allergy Severe Unknown Uncoded 05/28/20 18:01 Medications Home Medications Medication Instructions Recorded Confirmed Last Taken atenolol 25 mg PO DAILY 04/18/18 05/28/20 04/18/18 furosemide 20 mg PO DAILY 04/18/18 05/28/20 04/18/18 amlodipine 2.5 mg tablet 2.5 mg PO DAILY 03/04/20 05/28/20 Unknown aspirin 81 mg chewable tablet 81 mg PO DAILY 03/04/20 05/28/20 Unknown clopidogrel 75 mg tablet 75 mg PO DAILY 03/04/20 05/28/20 Unknown methenamine hippurate 1 gram tablet 1 g PO BID 03/04/20 05/28/20 Unknown multivitamin 1 tab PO DAILY 03/04/20 05/28/20 Unknown polyethylene glycol 3350 8.5 gram 8.5 g PO DAILY 03/04/20 05/28/20 Unknown oral powder packet acetaminophen 1,000 mg PO TID 05/28/20 05/28/20 Unknown docusate sodium [Colace] 100 mg PO DAILY PRN 05/28/20 05/28/20 Unknown guaifenesin 200 mg PO Q8H PRN 05/28/20 05/28/20 Unknown ibuprofen 200 mg PO TID 05/28/20 05/28/20 Unknown peg 400-propylene glycol [Systane 1 drp OPB QAM 05/28/20 05/28/20 Unknown (propylene glycol)] Active Medications Generic Name Dose Route Start Last Admin Trade Name Freq PRN Reason Stop Dose Admin Acetaminophen 500 mg 05/29/20 09:00 05/29/20 07:57 Acetaminophen 500 Mg Tab PO 06/28/20 08:59 Not Given TID [facility] Pantoprazole Sodium 40 mg/ 100 mls @ 20 mls/hr 05/28/20 21:00 05/29/20 10:12 Dextrose IV 06/27/20 20:59 8 mg/hr Q5H LINDA 20 mls/hr Administration 8 MG/HR Lidocaine 1 patch 05/28/20 20:30 05/29/20 08:52 Lidocaine 5% 1 Patch TD 06/27/20 20:29 Not Given QAM [facility] Miscellaneous 1 ea 05/29/20 00:00 05/29/20 00:06 Remove Lidoderm Patch N/A 06/28/20 00:00 Not Given DAILY@2100 LINDA Past Medical History Medical History Atrophic vaginitis CAD (coronary artery disease) HLD (hyperlipidemia) HTN (hypertension) Hyponatremia Incomplete bladder emptying Stroke No residual deficits Past Family History Family History Other Coronary heart disease Past Surgical History Surgical History Status post appendectomy Status post cardiac pacemaker procedure Status post hysterectomy Social History Smoking Status: Never smoker Hx Alcohol Use: No Hx Substance Use: No substance use type: does not use Physical Exam Vital Signs Last Vital Signs Temp 36.3 C L 05/29/20 07:50 Pulse 62 05/29/20 07:50 Resp 14 05/29/20 07:50 BP 146/72 H 05/29/20 07:50 Pulse Ox 98 05/29/20 07:50 Testing Laboratory Results 05/29/20 05:30 05/29/20 05:30 PT 11.5 Seconds (9.0-12.0) 05/28/20 17:34 INR 1.1 (0.9-1.1) 05/28/20 17:34 APTT 29.3 Seconds (21.0-31.0) 05/28/20 17:34 Blood Type O Positive 05/28/20 17:34 Antibody Screen NEGATIVE 05/28/20 17:34 Echocardiogram Date: 04/18/18 EF: 50-55% LV Function: low normal Other Findings: + diastolic dysfunction (type 1) Valvular Disease: + no significant valvular disease
[2020-05-29] MEDS: PRAVASTATIN SOD 10 MG TAB PO SCH (11:59)
[2020-05-29] MEDS: SODIUM CHLORIDE 0.9% 1000ML 1,000 ML IV SCH ×2 (12:22→22:07)
[2020-05-29] MEDS: FUROSEMIDE 20 MG TAB PO SCH (12:22)
[2020-05-29] MEDS ORDERED: ONDANSETRON INJ 2 MG/ML 2 ML VIAL IV PRN (13:39)
[2020-05-29] MEDS ORDERED: ATROPINE SULFATE 0.1 MG/ML 10ML SYR IV PRN (13:39)
[2020-05-29] MEDS ORDERED: ePHEDrine sulfate 50 MG/ML AMP IV PRN (13:39)
[2020-05-29] MEDS ORDERED: PROPOFOL IV EMULSION 10 MG/ML 20 ML VIAL IV ONE (13:47)
[2020-05-29] MEDS ORDERED: LIDOCAINE HCL 2% 2 ML VIAL/AMP(20MG/ML) INFIL ONE (13:47)
--- NOTE | 2020-05-29 14:01 | GI REPORT ---
Patient Name: Tana Villavicencio Procedure Date: 05/29/2020 1:49 PM Date of : 1935 Admit Type: Inpatient Age: 85 Gender: Female Attending MD: Dileep Shanks DO Procedure: Upper GI endoscopy Providers: Dileep Shanks DO Referring MD: Sumit Alvarado Indications: Melena Medicines: Monitored Anesthesia Care Complications: No immediate complications. Estimated Blood Loss: Estimated blood loss: none. Procedure: Pre-Anesthesia Assessment: - Prior to the procedure, a History and Physical was performed, and patient medications and allergies were reviewed. The patient's tolerance of previous anesthesia was also reviewed. The risks and benefits of the procedure and the sedation options and risks were discussed with the patient. All questions were answered, and informed consent was obtained. Prior Anticoagulants: The patient last took Plavix (clopidogrel) 1 day prior to the procedure. ASA Grade Assessment: III - A patient with severe systemic disease. After reviewing the risks and benefits, the patient was deemed in satisfactory condition to undergo the procedure. After obtaining informed consent, the endoscope was passed under direct vision. Throughout the procedure, the patient's blood pressure, pulse, and oxygen saturations were monitored continuously. The Endoscope was introduced through the mouth, and advanced to the third part of duodenum. The upper GI endoscopy was accomplished without difficulty. The patient tolerated the procedure well. Findings: The esophagus was normal. A medium-sized hiatal hernia was present. Two non-bleeding cratered gastric ulcers with no stigmata of bleeding were found on the greater curvature of the stomach. The largest lesion was 5 mm in largest dimension. Biopsies were taken with a cold forceps for Helicobacter pylori testing. The examined duodenum was normal. Impression: - Normal esophagus. - Medium-sized hiatal hernia. - Non-bleeding gastric ulcers with no stigmata of bleeding. Biopsied. - Normal examined duodenum. Recommendation: - Return patient to [facility] for ongoing care. - Advance diet as tolerated. - Continue present medications. - Await pathology results. Dileep Shanks DO 05/29/2020 2:01:45 PM This report has been signed electronically. Note Initiated On: 05/29/2020 1:49 PM Number of Addenda: 0 I attest to the content of the Intraoperative Record and orders documented therein, exceptions below {[id number]}
--- NOTE | 2020-05-29 14:39 | Anesthesiology Progress Note ---
Date of Service May 29, 2020 Anesthesia Post Procedure Vital Signs Vital Signs: Temp Pulse Pulse Pulse Resp BP BP 05/29/20 14:25 36.6 C 68 21 140/83 05/29/20 14:15 73 21 144/66 H 05/29/20 14:06 36.4 C L 83 18 131/84 05/29/20 13:05 37.1 C 68 18 154/92 H 05/29/20 11:18 36.7 C 65 12 145/72 H 05/29/20 07:50 36.3 C L 62 14 146/72 H 05/29/20 07:22 63 05/29/20 03:29 36.5 C 60 16 133/61 05/29/20 03:11 36.6 C 70 16 133/61 05/29/20 03:10 36.6 C 70 16 133/61 05/29/20 02:48 36.4 C L 61 18 137/74 05/29/20 01:52 36.5 C 70 16 133/72 05/29/20 00:59 69 05/29/20 00:52 36.5 C 72 16 121/72 05/29/20 00:22 36.5 C 65 18 125/69 05/29/20 00:07 36.4 C L 62 16 121/68 05/28/20 23:52 36.4 C L 65 18 118/81 05/28/20 23:06 36.7 C 60 16 117/57 L 05/28/20 22:29 36.8 C 70 16 117/57 L 05/28/20 22:07 36.8 C 70 16 117/57 L 05/28/20 21:07 36.7 C 64 18 110/69 05/28/20 20:37 36.8 C 70 16 115/52 L 05/28/20 20:29 36.8 C 70 16 99/63 L 05/28/20 20:22 36.7 C 66 16 117/67 05/28/20 20:04 36.8 C 69 16 112/49 L 05/28/20 19:01 68 18 108/46 L 05/28/20 19:00 68 17 05/28/20 18:31 67 19 122/51 L 05/28/20 18:30 70 20 05/28/20 18:02 68 17 05/28/20 18:01 66 16 115/53 L 05/28/20 18:00 67 14 05/28/20 17:32 70 14 05/28/20 17:31 67 18 122/59 L 05/28/20 17:30 68 21 05/28/20 17:11 75 17 117/42 L 05/28/20 17:07 73 17 05/28/20 16:30 68 15 05/28/20 16:00 70 22 05/28/20 15:30 69 17 05/28/20 15:21 69 69 20 135/59 L 05/28/20 15:15 36.7 C 69 20 135/59 L 05/28/20 15:12 76 18 05/28/20 15:07 69 18 135/59 L Pulse Ox 05/29/20 14:25 99 05/29/20 14:15 100 05/29/20 14:06 100 05/29/20 13:05 100 05/29/20 11:18 100 05/29/20 07:50 98 05/29/20 07:22 05/29/20 03:29 98 05/29/20 03:11 99 05/29/20 03:10 99 05/29/20 02:48 98 05/29/20 01:52 98 05/29/20 00:59 05/29/20 00:52 95 05/29/20 00:22 100 05/29/20 00:07 99 05/28/20 23:52 98 05/28/20 23:06 100 05/28/20 22:29 95 05/28/20 22:07 95 05/28/20 21:07 97 05/28/20 20:37 97 05/28/20 20:29 99 05/28/20 20:22 100 05/28/20 20:04 98 05/28/20 19:01 97 05/28/20 19:00 97 05/28/20 18:31 99 05/28/20 18:30 100 05/28/20 18:02 98 05/28/20 18:01 98 05/28/20 18:00 99 05/28/20 17:32 100 05/28/20 17:31 97 05/28/20 17:30 97 05/28/20 17:11 05/28/20 17:07 05/28/20 16:30 05/28/20 16:00 99 05/28/20 15:30 05/28/20 15:21 100 05/28/20 15:15 100 05/28/20 15:12 98 05/28/20 15:07 Transfer of Care Handoff Completed per policy Notes Mental Status: alert / awake / arousable and participated in evaluation Nausea / Vomiting: adequately controlled Pain: adequately controlled Airway Patency, RR, SpO2: stable & adequate BP & HR: stable & adequate Hydration State: stable & adequate Anesthetic Complications: no major complications apparent and Pt Satisfied with anesthetic care
--- NOTE | 2020-05-29 15:34 | Hospitalist Progress Note ---
Date of Service May 29, 2020 Assessment & Plan (1) Anemia: 85 yo F with PMHx of CAD, HTN, pacemaker, HLD, CVA, dysarthria, hx UTI, sarcopenia and hyponatremia who presents with abdominal pain and found to have anemia with Hgb of 5.0 Anemia due to acute blood loss: Suspect GI Bleed -Admit to med surg with tele -Hold antiplatelets- currently taking both asa and plavix, as well as ibuprofen for frozen shoulder per med rec from [facility] all NSAIDs permanently. Holding ASA 81 -Hgb= 5.0 on admission. s/p 2 units pRBCs. Hgb 8.3 this AM -Trend daily CBC -Protonix gtt . Likely transition to PO tomorrow -Iron studies showing iron 17, TIBC 363, Ferritin 8.6. Will initiate PO ferrous sulfate 325 mg TID . Recheck iron studies in 1-3 months -GI consulted, Dr. Shanks- last colonoscopy within the past 10 years, noted as normal, done in [place]. Has never had EGD per knowledge -EGD today: Normal esophagus. Medium-sized hiatal hernia. Non-bleeding gastric ulcers with no stigmata of bleeding. Biopsied. Normal examined duodenum. -Advancing diet as tolerated - Awaiting pathology results Constipation -Colace 100 mg BID , Miralax 17 g daily . Will cont on discharge Dysarthria: - s/p CVA in Apr 2018 - chronic, slightly slowed and minimally slurred on admission, daughter reports currently at baseline. - Does not have local neurologist as she just moved here from [place] in Dec 2019. Consider setting up on discharge Hypertension: - Holding home antihypertensives with blood pressure borderline on admission. CAD (coronary artery disease): - Review of previous scanned in records shows a h/o acute [place] with stent placement in RCA in 1999 - Hold asa for now secondary to gi bleed as above -cont atenolol as above. CVA (cerebral vascular accident): -History of such, on aspirin and Plavix therapy from stroke which is noted in EMR from Apr 2018. Will hold antiplatelet medications At that time, Neuro had recommended CHANGING ASA to Plavix--> it seems she has remained on DAPT since then -recommend restarting Plavix only after GIB resolves Expressive aphasia: - Secondary to hx of CVA as above Chronic UTI: - Follows with Dr. 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 This morning, the patient notes feeling weak and tired, although denies abdominal discomfort or GERD like symptoms. She is hemodynamically stable. I agree with the impression and plan as noted above. Appreciate GI consult, with EGD pending. Protonix drip. NPO with maintenance fluids. Monitor CBC and hemodynamics. Subjective 85-year-old female found in bed this AM in NAD. No acute overnight events. Pt reports no abd exam. Pt with no other acute concerns or complaints . Awaiting EGD today. Review of Systems Review of Systems: All systems reviewed & are unremarkable except as noted in HPI & below Physical Exam Constitutional: WD/WN, vitals as above Eyes: PERRL, conjunctivae normal, anicteric sclerae ENMT: Mouth: + dry oral mucous membranes Respiratory: normal respiratory effort, lungs clear to auscultation Cardiovascular: RRR, no murmur, no edema Gastrointestinal (Abdomen): Inspection/Auscultation: abdomen not distended Percussion/Palpation: + abdomen tender (suprapubic ) Skin: no rashes, warm and dry + pallor Neurologic: dysarthria Psychiatric: A+Ox3, euthymic affect Results & Data Results & Data ([facility]) Vital Signs (Past 12 Hours) Vital Signs Temp Pulse Pulse Pulse Resp BP Pulse Ox 05/29/20 14:50 36.7 C 61 20 149/71 H 05/29/20 14:25 36.6 C 68 21 140/83 99 05/29/20 14:15 73 21 144/66 H 100 05/29/20 14:06 36.4 C L 83 18 131/84 100 05/29/20 13:05 37.1 C 68 18 154/92 H 100 05/29/20 11:18 36.7 C 65 12 145/72 H 100 05/29/20 07:50 36.3 C L 62 14 146/72 H 98 05/29/20 07:22 63 Laboratory Results Laboratory Results - last 24 hr 05/28/20 05/28/20 05/28/20 16:50 16:50 17:32 WBC 7.86 RBC 2.23 L Hgb 5.0 L* Hct 17.0 L* MCV 76.2 L MCH 22.4 L MCHC 29.4 L RDW Std Deviation 43.3 RDW Coeff of Dorota 15.4 H Plt Count 363 MPV 8.6 Immature Gran % (Auto) 0.3 Neut % (Auto) 66.7 Lymph % (Auto) 15.5 Castro % (Auto) 13.5 Eos % (Auto) 3.2 Baso % (Auto) 0.8 Neut # (Auto) 5.25 Lymph # (Auto) 1.22 Castro # (Auto) 1.06 H Eos # (Auto) 0.25 Baso # (Auto) 0.06 Immature Gran # (Auto) 0.02 Polychromasia 1+ Hypochromasia Present Microcytosis Present PT INR APTT PTT Ratio Sodium 135 L Potassium 4.2 Chloride 105 Carbon Dioxide 25 Anion Gap 5.0 BUN 17 Creatinine 0.68 Est Cr Clr Drug Dosing 54.4 Est GFR ( Amer) 91.2 Est GFR (Non-Af Amer) 78.6 BUN/Creatinine Ratio 25.8 H Glucose 103 H Calcium 8.5 Iron TIBC Transferrin Ferritin Total Bilirubin 0.2 AST 20 ALT 11 L Alkaline Phosphatase 55 Total Protein 6.0 L Albumin 3.0 L Globulin 3.0 Albumin/Globulin Ratio 1.0 Lipase 81 Vitamin B12 Folate Specimen Hemolysis Nasal Screen MRSA (PCR) COVID-19 Eval Order Covid19 IDNow atMWYC SARS-CoV-2, RNA, NAAT Blood Type Blood Type Recheck Antibody Screen Crossmatch 05/28/20 05/28/20 05/28/20 17:32 17:34 17:34 WBC RBC Hgb Hct MCV MCH MCHC RDW Std Deviation RDW Coeff of Dorota Plt Count MPV Immature Gran % (Auto) Neut % (Auto) Lymph % (Auto) Castro % (Auto) Eos % (Auto) Baso % (Auto) Neut # (Auto) Lymph # (Auto) Castro # (Auto) Eos # (Auto) Baso # (Auto) Immature Gran # (Auto) Polychromasia Hypochromasia Microcytosis PT 11.5 INR 1.1 APTT 29.3 PTT Ratio 1.1 Sodium Potassium Chloride Carbon Dioxide Anion Gap BUN Creatinine Est Cr Clr Drug Dosing Est GFR ( Amer) Est GFR (Non-Af Amer) BUN/Creatinine Ratio Glucose Calcium Iron TIBC Transferrin Ferritin Total Bilirubin AST ALT Alkaline Phosphatase Total Protein Albumin Globulin Albumin/Globulin Ratio Lipase Vitamin B12 Folate Specimen Hemolysis Nasal Screen MRSA (PCR) COVID-19 Eval Order SARS-CoV-2, RNA, NAAT NEGATIVE Blood Type O Positive Blood Type Recheck Antibody Screen NEGATIVE Crossmatch See Detail 05/28/20 05/28/20 05/28/20 18:06 18:10 19:05 WBC RBC Hgb Hct MCV MCH MCHC RDW Std Deviation RDW Coeff of Dorota Plt Count MPV Immature Gran % (Auto) Neut % (Auto) Lymph % (Auto) Castro % (Auto) Eos % (Auto) Baso % (Auto) Neut # (Auto) Lymph # (Auto) Castro # (Auto) Eos # (Auto) Baso # (Auto) Immature Gran # (Auto) Polychromasia Hypochromasia Microcytosis PT INR APTT PTT Ratio Sodium Potassium Chloride Carbon Dioxide Anion Gap BUN Creatinine Est Cr Clr Drug Dosing Est GFR ( Amer) Est GFR (Non-Af Amer) BUN/Creatinine Ratio Glucose Calcium Iron 17 L Cancelled TIBC Transferrin Ferritin Total Bilirubin AST ALT Alkaline Phosphatase Total Protein Albumin Globulin Albumin/Globulin Ratio Lipase Vitamin B12 Folate Specimen Hemolysis Nasal Screen MRSA (PCR) COVID-19 Eval Order SARS-CoV-2, RNA, NAAT Blood Type Blood Type Recheck O Positive Antibody Screen Crossmatch 05/28/20 05/28/20 05/28/20 19:05 22:28 22:28 WBC RBC Hgb 6.8 L* Hct 21.8 L MCV MCH MCHC RDW Std Deviation RDW Coeff of Dorota Plt Count MPV Immature Gran % (Auto) Neut % (Auto) Lymph % (Auto) Castro % (Auto) Eos % (Auto) Baso % (Auto) Neut # (Auto) Lymph # (Auto) Castro # (Auto) Eos # (Auto) Baso # (Auto) Immature Gran # (Auto) Polychromasia Hypochromasia Microcytosis PT INR APTT PTT Ratio Sodium Potassium Chloride Carbon Dioxide Anion Gap BUN Creatinine Est Cr Clr Drug Dosing Est GFR ( Amer) Est GFR (Non-Af Amer) BUN/Creatinine Ratio Glucose Calcium Iron TIBC Transferrin 287 Ferritin Total Bilirubin AST ALT Alkaline Phosphatase Total Protein Albumin Globulin Albumin/Globulin Ratio Lipase Vitamin B12 865 Folate > 20.00 Specimen Hemolysis Nasal Screen MRSA (PCR) COVID-19 Eval Order SARS-CoV-2, RNA, NAAT Blood Type Blood Type Recheck Antibody Screen Crossmatch 05/29/20 05/29/20 05/29/20 05:30 05:30 Unknown WBC 7.48 RBC 3.28 L Hgb 8.3 L Hct 26.4 L MCV 80.5 D MCH 25.3 MCHC 31.4 L RDW Std Deviation 46.9 H RDW Coeff of Dorota 15.8 H Plt Count 306 MPV 8.5 Immature Gran % (Auto) 0.4 Neut % (Auto) 68.9 Lymph % (Auto) 13.6 Castro % (Auto) 12.8 Eos % (Auto) 3.9 Baso % (Auto) 0.4 Neut # (Auto) 5.15 Lymph # (Auto) 1.02 L Castro # (Auto) 0.96 H Eos # (Auto) 0.29 Baso # (Auto) 0.03 Immature Gran # (Auto) 0.03 H Polychromasia Hypochromasia Microcytosis PT INR APTT PTT Ratio Sodium 136 Potassium 3.4 L D Chloride 107 Carbon Dioxide 24 Anion Gap 5.0 BUN 15 Creatinine 0.53 L Est Cr Clr Drug Dosing 69.7 Est GFR ( Amer) 98.9 Est GFR (Non-Af Amer) 85.4 BUN/Creatinine Ratio 27.3 H Glucose 89 Calcium 8.4 L Iron TIBC 363 Transferrin Ferritin 8.6 Total Bilirubin 0.5 AST 11 L ALT 9 L Alkaline Phosphatase 54 Total Protein 5.8 L Albumin 3.0 L Globulin 2.8 Albumin/Globulin Ratio 1.1 Lipase Vitamin B12 Folate Specimen Hemolysis Nasal Screen MRSA (PCR) Negative COVID-19 Eval Order SARS-CoV-2, RNA, NAAT Blood Type Blood Type Recheck Antibody Screen Crossmatch Medications Administered Current Inpatient Medications Acetaminophen (Acetaminophen 325 Mg Tab) 650 mg PO Q4H PRN PRN Reason: Moderate Pain Stop: 06/27/20 19:39 Acetaminophen (Acetaminophen 500 Mg Tab) 500 mg PO TID [facility] Stop: 06/28/20 08:59 Last Admin: 05/29/20 12:22 Dose: Not Given Documented by: Docusate Sodium (Docusate Sodium 100 Mg Cap) 100 mg PO DAILY PRN PRN Reason: Constipation Stop: 06/27/20 21:32 Docusate Sodium (Docusate Sodium 100 Mg Cap) 100 mg PO BID [facility] Stop: 06/28/20 20:59 Furosemide (Furosemide 20 Mg Tab) 20 mg PO DAILY [facility] Stop: 06/28/20 08:59 Last Admin: 05/29/20 12:22 Dose: Not Given Documented by: Pantoprazole Sodium 40 mg/ (Dextrose) 100 mls @ 20 mls/hr IV Q5H [facility] Stop: 06/27/20 20:59 Last Admin: 05/29/20 14:51 Dose: 8 mg/hr, 20 mls/hr Documented by: Sodium Chloride (Nss 1000ml) 1,000 mls @ 100 mls/hr IV .Q10H [facility] Stop: 05/30/20 06:59 Last Admin: 05/29/20 12:22 Dose: 100 mls/hr Documented by: Lidocaine (Lidocaine 5% 1 Patch) 1 patch TD QAM [facility] Stop: 06/27/20 20:29 Last Admin: 05/29/20 08:52 Dose: Not Given Documented by: Miscellaneous (Remove Lidoderm Patch) 1 ea N/A DAILY@2100 [facility] Stop: 06/28/20 00:00 Last Admin: 05/29/20 00:06 Dose: Not Given Documented by: Ondansetron HCl (Ondansetron Inj 2 Mg/Ml 2 Ml Vial) 4 mg IV Q4H PRN PRN Reason: Nausea And Vomiting Stop: 06/27/20 19:39 Polyethylene Glycol (Polyethylene (Miralax) 17 Gm Pack) 17 gm PO DAILY [facility] Stop: 06/29/20 08:59 Pravastatin Sodium (Pravastatin Sod 10 Mg Tab) 10 mg PO DAILY [facility] Stop: 06/28/20 08:59 Last Admin: 05/29/20 11:59 Dose: Not Given Documented by: Resident Activity Tracking Resident Involvement: Resident Care Provided Care Provided: Adult Hospital Medicine
[2020-05-29] MEDS: DOCUSATE SODIUM 100 MG CAP PO SCH (20:54)
[2020-05-30] MEDS: PANTOprazole 40 MG in DEXTROSE 5% 100 ML IV SCH ×3 (01:48→11:27)
[2020-05-30 07:06] LABS: Basophils # (auto) 0.04 K/uL (0-0.2); Basophils % (auto) 0.4 %; Eosinophils # (auto) 0.18 K/uL (0-0.5); Eosinophils % (auto) 1.6 %; Immature Granulocytes # (auto) 0.03 K/uL (0.00-0.02); Immature Granulocytes % (auto) 0.3 %; Lymphocytes # (auto) 0.71 K/uL (1.2-3.4); Lymphocytes % (auto) 6.4 %; Mean Corpuscular Hemoglobin 24.9 pg (25-34); Mean Corpuscular Volume 80.3 fL (80-100); Mean Platelet Volume 8.5 fL (7.4-10.4); Monocytes # (auto) 1.24 K/uL (0.11-0.59); Monocytes % (auto) 11.1 %; Neutrophils # (auto) 8.97 K/uL (1.4-6.5); Neutrophils % (auto) 80.2 %; Platelet Count 365 K/uL (130-400); RDW Coefficient of Variation 16.1 % (11.5-14.5); RDW Standard Deviation 47.3 fL (36.4-46.3); Red Blood Count 3.61 M/uL (4.2-5.4); White Blood Count 11.17 K/uL (4.8-10.8)
[2020-05-30] MEDS: ACETAMINOPHEN 500 MG TAB PO SCH ×3 (07:45→20:29)
[2020-05-30] MEDS: DOCUSATE SODIUM 100 MG CAP PO SCH ×2 (07:45→20:26)
[2020-05-30] MEDS: amLODIPine BESYLATE 5 MG TAB PO SCH (07:46)
[2020-05-30] MEDS: LIDOCAINE 5% 1 PATCH TD SCH (07:46)
[2020-05-30] MEDS: FUROSEMIDE 20 MG TAB PO SCH (07:46)
[2020-05-30] MEDS: ATENOLOL 25 MG TABLET PO SCH (07:47)
[2020-05-30] MEDS: FERROUS SULFATE 325 MG TAB PO SCH ×2 (07:47→11:27)
[2020-05-30] MEDS: PRAVASTATIN SOD 10 MG TAB PO SCH (07:48)
[2020-05-30] MEDS: POLYETHYLENE (MIRALAX) 17 GM PACK PO SCH (07:48)
[2020-05-30 07:50] LABS: Albumin Level 3.4 gm/dl (3.4-5.0); BUN Creatinine Ratio 13.2 (10-20); Calcium 8.9 mg/dl (8.5-10.1); Creatinine Clr Calc Pharmacy 73.4 ml/min; Est GFR (African American) 101.5; Est GFR (Non-African American) 87.6
[2020-05-30 07:52] LABS: Albumin Globulin Ratio 1.1 (0.9-2); Bilirubin,Total 0.6 mg/dl (0.2-1); Globulin 3.1 gm/dl (2.5-4.0); Total Protein 6.5 gm/dl (6.4-8.2)
--- NOTE | 2020-05-30 10:04 | Gastroenterology Progress Note ---
Date of Service May 30, 2020 Assessment & Plan (1) Anemia: (2) Gastric ulcer: -Protonix 40 mg BID x 8 weeks, then can decrease to once daily. -Avoid NSAIDs. -Continue to monitor H/H. -Supportive care per primary team. Admission and Anticipated Discharge Date Admission Date: May 28, 2020 Supervising Physician Co-Signing Physician Notes Agree with SUNNY Leon Abd: Soft, NT, ND, +BS Continue current therapy and supportive care No overt GI bleeding overnight Discussed case with her daughter Fran. Kuhn Patient is an 85 yo female with anemia. She underwent an EGD on 05/29/2020 that indicated 2 clean base ulcers. She continues on Protonix and her H/H is now 9.0/29.0. She denies abdominal pain or further GI concerns at present. Review of Systems Constitutional: no fever and no chills Respiratory: no cough and no dyspnea Cardiovascular: no chest pain Gastrointestinal: no abdominal pain Physical Exam Constitutional: well developed Respiratory: normal respiratory effort Gastrointestinal (Abdomen): Inspection/Auscultation: abdomen normal to inspection Percussion/Palpation: abdomen soft; abdomen nontender Results & Data Results & Data ([facility]) Vital Signs (Past 12 Hours) Vital Signs Temp Pulse Pulse Resp BP Pulse Ox 05/30/20 07:45 36.7 C 69 18 142/84 H 94 05/30/20 03:46 36.6 C 70 20 151/69 H 93 05/30/20 02:04 95 H 05/29/20 23:13 36.9 C 72 18 166/69 H 96 PG Care Time/CCT Total # of Minutes Spent Total Time Spent with Patient: Total time spent is greater than 50% in coordination of care (as documented) at patient's floor/unit and/or counseling patient: Coding Level of Care Code 04205 Subseq Hosp Care Lvl 2 Diagnoses Anemia D64.9 Gastric ulcer K25.9
--- NOTE | 2020-05-30 12:04 | Hospitalist Progress Note ---
Date of Service May 30, 2020 Assessment & Plan (1) Anemia: 85 yo F with PMHx of CAD, HTN, pacemaker, HLD, CVA, dysarthria, hx UTI, sarcopenia and hyponatremia who presents with abdominal pain and found to have anemia with Hgb of 5.0 Anemia due to acute blood loss: -Admit to med surg with tele -Hold antiplatelets- currently taking both asa and plavix, as well as ibuprofen for frozen shoulder per med rec from [facility] all NSAIDs permanently. Holding ASA 81 -Hgb= 5.0 on admission. s/p 2 units pRBCs. Hgb 9.0 this AM -Trend daily CBC . Can repeat in 1 week upon discharge -Protonix gtt transition to p.o. Protonix 40 mg twice daily, continue for 8 we eks then decrease to once daily -Iron studies showing iron 17, TIBC 363, Ferritin 8.6. Will initiate PO ferrous sulfate 325 mg once daily (to prevent constipation as below). Recheck iron studies in 1-3 months -GI consulted, Dr. Shanks- last colonoscopy within the past 10 years, noted as normal, done in [place]. Has never had EGD per knowledge -EGD 05/29/2020: Normal esophagus. Medium-sized hiatal hernia. Non-bleeding gastric ulcers with no stigmata of bleeding. Biopsied. Normal examined duodenum. -Advancing diet as toleratedregular diet soft size bites now - Awaiting pathology results Constipation -Colace 100 mg BID , Miralax 17 g daily for now while inpatient. Can discharge on a regimen Dysarthria: - s/p CVA in Apr 2018 - chronic, slightly slowed and minimally slurred on admission, daughter reports currently at baseline. - Does not have local neurologist as she just moved here from [place] in Dec 2019. Consider setting up on discharge Hypertension: - Holding home antihypertensives with blood pressure borderline on admission. CAD (coronary artery disease): - Review of previous scanned in records shows a h/o acute [place] with stent placement in RCA in 1999 - Hold asa for now secondary to gi bleed as above -cont atenolol as above. CVA (cerebral vascular accident): -History of such, on aspirin and Plavix therapy from stroke which is noted in EMR from Apr 2018. Will hold antiplatelet medications for now. At that time, Neuro had recommended CHANGING ASA to Plavix--> it seems she has remained on DAPT since then -recommend restarting Plavix or aspirin only after GIB resolves. Aspirin likely more beneficial in this patient, however this decision can be made by PCP at follow-up after reviewing repeat CBC as outpatient. Expressive aphasia: - Secondary to hx of CVA as above Chronic UTI: - Follows with Dr. 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 Patient can be discharged tomorrow (Medicare3 midnight rule). Patient will need a Covid test prior. Admission and Anticipated Discharge Date Admission Date: May 28, 2020 Supervising Physician Co-Signing Physician Notes Patient seen and examined with PGY-3 Dr. Rinaldi. Agree with history, exam findings, assessment and plan of care as outlined. In brief, Tana is an 85 year old female with hx of CAD and CVA (residual aphasia) admitted with anemia. On admission, hgb 5.0. S/p transfusion with appropriate improvement in her hemoglobin. No further episodes of melena or bright red blood. EGD was normal. Biopsy results pending. Transitioned from protonix gtt to PO protonix BID. Holding ASA. Was taking NSAID for shoulder pain. She could potentially use topical voltaren for her shoulder in the future for pain as this has minimal systemic absorption. Plavix is also being held. CVA was in Apr 2018 and last cardiac stent was placed in 1999. Stable for discharge back to facility with home PT/OT. Will need repeat H/H in 1 week. Dispo: discharge home tomorrow. Subjective 85-year-old female found in bed this a.m. in no acute distress. No acute overnight events. Patient denies any abdominal pain or other GI complaints. Patient tolerating diet. Patient no other acute concerns or complaints. Review of Systems Review of Systems: All systems reviewed & are unremarkable except as noted in HPI & below Physical Exam Constitutional: WD/WN, vitals as above Eyes: PERRL, conjunctivae normal, anicteric sclerae ENMT: Mouth: + dry oral mucous membranes Respiratory: normal respiratory effort, lungs clear to auscultation Cardiovascular: RRR, no murmur, no edema Gastrointestinal (Abdomen): normal bowel sounds, soft, nontender, no hepatosplenomegaly Skin: no rashes, warm and dry Psychiatric: A+Ox3, euthymic affect Results & Data Results & Data ([facility]) Vital Signs (Past 12 Hours) Vital Signs Temp Pulse Pulse Resp BP Pulse Ox 05/30/20 11:39 36.7 C 72 18 110/62 98 05/30/20 07:45 36.7 C 69 18 142/84 H 94 05/30/20 03:46 36.6 C 70 20 151/69 H 93 05/30/20 02:04 95 H Laboratory Results Laboratory Results - last 24 hr 05/30/20 05/30/20 06:19 06:19 WBC 11.17 H RBC 3.61 L Hgb 9.0 L Hct 29.0 L MCV 80.3 MCH 24.9 L MCHC 31.0 L RDW Std Deviation 47.3 H RDW Coeff of Dorota 16.1 H Plt Count 365 MPV 8.5 Immature Gran % (Auto) 0.3 Neut % (Auto) 80.2 Lymph % (Auto) 6.4 Navarro % (Auto) 11.1 Eos % (Auto) 1.6 Baso % (Auto) 0.4 Neut # (Auto) 8.97 H Lymph # (Auto) 0.71 L [place]arro # (Auto) 1.24 H Eos # (Auto) 0.18 Baso # (Auto) 0.04 Immature Gran # (Auto) 0.03 H Sodium 138 Potassium 4.0 D Chloride 107 Carbon Dioxide 27 Anion Gap 4.0 BUN 6 L D Creatinine 0.49 L Est Cr Clr Drug Dosing 73.4 Est GFR ( Amer) 101.5 Est GFR (Non-Af Amer) 87.6 BUN/Creatinine Ratio 13.2 Glucose 106 H Calcium 8.9 Total Bilirubin 0.6 AST 12 L ALT 10 L Alkaline Phosphatase 64 Total Protein 6.5 Albumin 3.4 Globulin 3.1 Albumin/Globulin Ratio 1.1 Medications Administered Current Inpatient Medications Acetaminophen (Acetaminophen 325 Mg Tab) 650 mg PO Q4H PRN PRN Reason: Moderate Pain Stop: 06/27/20 19:39 Acetaminophen (Acetaminophen 500 Mg Tab) 500 mg PO TID [facility] Stop: 06/28/20 08:59 Last Admin: 05/30/20 07:45 Dose: 500 mg Documented by: Amlodipine Besylate (Amlodipine Besylate 5 Mg Tab) 2.5 mg PO DAILY [facility] Stop: 06/29/20 08:59 Last Admin: 05/30/20 07:46 Dose: 2.5 mg Documented by: Atenolol (Atenolol 25 Mg Tablet) 25 mg PO DAILY [facility] Stop: 06/29/20 08:59 Last Admin: 05/30/20 07:47 Dose: 25 mg Documented by: Docusate Sodium (Docusate Sodium 100 Mg Cap) 100 mg PO DAILY PRN PRN Reason: Constipation Stop: 06/27/20 21:32 Docusate Sodium (Docusate Sodium 100 Mg Cap) 100 mg PO BID [facility] Stop: 06/28/20 20:59 Last Admin: 05/30/20 07:45 Dose: 100 mg Documented by: Ferrous Sulfate (Ferrous Sulfate 325 Mg Tab) 325 mg PO QAM [facility] Stop: 06/30/20 08:59 Furosemide (Furosemide 20 Mg Tab) 20 mg PO DAILY [facility] Stop: 06/28/20 08:59 Last Admin: 05/30/20 07:46 Dose: 20 mg Documented by: Lidocaine (Lidocaine 5% 1 Patch) 1 patch TD QAM [facility] Stop: 06/27/20 20:29 Last Admin: 05/30/20 07:46 Dose: 1 patch Documented by: Miscellaneous (Remove Lidoderm Patch) 1 ea N/A DAILY@2100 [facility] Stop: 06/28/20 00:00 Last Admin: 05/29/20 20:52 Dose: Not Given Documented by: Ondansetron HCl (Ondansetron Inj 2 Mg/Ml 2 Ml Vial) 4 mg IV Q4H PRN PRN Reason: Nausea And Vomiting Stop: 06/27/20 19:39 Last Admin: 05/29/20 20:56 Dose: 4 mg Documented by: Pantoprazole Sodium (Pantoprazole 40 Mg Tab) 40 mg PO BID [facility] Stop: 06/29/20 20:59 Polyethylene Glycol (Polyethylene (Miralax) 17 Gm Pack) 17 gm PO DAILY [facility] Stop: 06/29/20 08:59 Last Admin: 05/30/20 07:48 Dose: 17 gm Documented by: Pravastatin Sodium (Pravastatin Sod 10 Mg Tab) 10 mg PO DAILY [facility] Stop: 06/28/20 08:59 Last Admin: 05/30/20 07:48 Dose: 10 mg Documented by: Resident Activity Tracking Resident Involvement: Resident Care Provided Care Provided: Adult Hospital Medicine
--- NOTE | 2020-05-30 14:40 | Electrocardiogram Report ---
Test Reason : Blood Pressure : / mmHG Vent. Rate : 069 BPM Atrial Rate : 069 BPM P-R Int : 142 ms QRS Dur : 170 ms QT Int : 442 ms P-R-T Axes : 057 -83 077 degrees QTc Int : 473 ms Atrial-sensed ventricular-paced rhythm Abnormal ECG When compared with ECG of 18-APR-2018 10:12, No significant change was found Confirmed by Tay James ([id number]) on 05/30/2020 2:40:01 PM Referred By: Sumit cisneros Banner Confirmed By:Tay James
[2020-05-30] MEDS: PANTOprazole 40 MG TAB PO SCH (20:28)
[2020-05-31] MEDS: ACETAMINOPHEN 500 MG TAB PO SCH ×3 (08:07→21:36)
[2020-05-31] MEDS: PRAVASTATIN SOD 10 MG TAB PO SCH (08:07)
[2020-05-31] MEDS: amLODIPine BESYLATE 5 MG TAB PO SCH (08:08)
[2020-05-31] MEDS: DOCUSATE SODIUM 100 MG CAP PO SCH ×2 (08:08→21:37)
[2020-05-31] MEDS: LIDOCAINE 5% 1 PATCH TD SCH (08:08)
[2020-05-31] MEDS: PANTOprazole 40 MG TAB PO SCH ×2 (08:08→21:37)
[2020-05-31] MEDS: FUROSEMIDE 20 MG TAB PO SCH (08:09)
[2020-05-31] MEDS: POLYETHYLENE (MIRALAX) 17 GM PACK PO SCH (08:09)
[2020-05-31] MEDS: ATENOLOL 25 MG TABLET PO SCH (08:09)
--- NOTE | 2020-05-31 08:16 | Hospitalist Progress Note ---
Date of Service May 31, 2020 Assessment & Plan (1) Anemia: post Transfuion 2 units RBCs. No new symptoms or signs of bleeding Stable and inccreasing last CBC as noted in results (2) Gastric ulcer: post EGD GI Recommendations Protonix 40 mg bid scheduled for 8 weeks with decrease to once daily avoid NSAIDS Ongoing monitoring with CBCin the am (3) CVA (cerebral vascular accident): Pt with most recent hx in 04/2018 Stopped ASA and Plavix during admission Pt will need to restart anti-platelet therapy on discharge with stabilization of anemia CBC ordered in am Considered restarting Aspirin (4) CAD (coronary artery disease): Review of previous scanned in records shows a h/o acute [place] with stent placement in RCA in 1999 - Hold asa for now secondary to gi bleed as above -cont atenolol as above. (5) Hypertension: Continue current medications plan to transition to outpatient medications by PCP. Admission and Anticipated Discharge Date Admission Date: May 28, 2020 Anticipated date of discharge: 06/01/20 Subjective no new events overnight. has done well since transfusions. tolerating her diet and no complaints of pain Scheduled for transition to [facility] in future no f/c no cp,dyspnea or abd pain no n/v/d Review of Systems Review of Systems: All systems reviewed & are unremarkable except as noted in Subjective Physical Exam Physical Exam: Constitutional: WD/WN, vitals as above Respiratory: Effort normal, CTA B/L CV: RRR, no murmur, no edema Abdomen: normal bowel sounds, soft, nontender, no hepatosplenomegaly Results & Data Results & Data ([facility]) Vital Signs (Past 12 Hours) Vital Signs Temp Pulse Pulse Resp BP Pulse Ox 05/31/20 07:25 36.7 C 67 18 127/72 97 05/31/20 07:21 69 05/31/20 04:20 36.5 C 70 20 119/71 100 05/31/20 00:15 83 05/31/20 00:00 36.5 C 70 18 127/70 99 Medications Administered Current Inpatient Medications Acetaminophen (Acetaminophen 325 Mg Tab) 650 mg PO Q4H PRN PRN Reason: Moderate Pain Stop: 06/27/20 19:39 Acetaminophen (Acetaminophen 500 Mg Tab) 500 mg PO TID [facility] Stop: 06/28/20 08:59 Last Admin: 05/31/20 08:07 Dose: 500 mg Documented by: Amlodipine Besylate (Amlodipine Besylate 5 Mg Tab) 2.5 mg PO DAILY [facility] Stop: 06/29/20 08:59 Last Admin: 05/31/20 08:08 Dose: 2.5 mg Documented by: Atenolol (Atenolol 25 Mg Tablet) 25 mg PO DAILY [facility] Stop: 06/29/20 08:59 Last Admin: 05/31/20 08:09 Dose: 25 mg Documented by: Docusate Sodium (Docusate Sodium 100 Mg Cap) 100 mg PO DAILY PRN PRN Reason: Constipation Stop: 06/27/20 21:32 Docusate Sodium (Docusate Sodium 100 Mg Cap) 100 mg PO BID [facility] Stop: 06/28/20 20:59 Last Admin: 05/31/20 08:08 Dose: 100 mg Documented by: Ferrous Sulfate (Ferrous Sulfate 325 Mg Tab) 325 mg PO QAM [facility] Stop: 06/30/20 08:59 Last Admin: 05/31/20 08:08 Dose: 325 mg Documented by: Furosemide (Furosemide 20 Mg Tab) 20 mg PO DAILY [facility] Stop: 06/28/20 08:59 Last Admin: 05/31/20 08:09 Dose: 20 mg Documented by: Lidocaine (Lidocaine 5% 1 Patch) 1 patch TD QAM [facility] Stop: 06/27/20 20:29 Last Admin: 05/31/20 08:08 Dose: 1 patch Documented by: Miscellaneous (Remove Lidoderm Patch) 1 ea N/A DAILY@2100 [facility] Stop: 06/28/20 00:00 Last Admin: 05/30/20 20:29 Dose: Not Given Documented by: Ondansetron HCl (Ondansetron Inj 2 Mg/Ml 2 Ml Vial) 4 mg IV Q4H PRN PRN Reason: Nausea And Vomiting Stop: 06/27/20 19:39 Last Admin: 05/29/20 20:56 Dose: 4 mg Documented by: Pantoprazole Sodium (Pantoprazole 40 Mg Tab) 40 mg PO BID [facility] Stop: 06/29/20 20:59 Last Admin: 05/31/20 08:08 Dose: 40 mg Documented by: Polyethylene Glycol (Polyethylene (Miralax) 17 Gm Pack) 17 gm PO DAILY [facility] Stop: 06/29/20 08:59 Last Admin: 05/31/20 08:09 Dose: 17 gm Documented by: Pravastatin Sodium (Pravastatin Sod 10 Mg Tab) 10 mg PO DAILY [facility] Stop: 06/28/20 08:59 Last Admin: 05/31/20 08:07 Dose: 10 mg Documented by: PG Care Time/CCT Total # of Minutes Spent Total Time Spent with Patient: Total time spent is greater than 50% in coordination of care (as documented) at patient's floor/unit and/or counseling patient: Coding Level of Care Code 26760 Subseq Hosp Care Lvl 2 Diagnoses Anemia D64.9 Gastric ulcer K25.9 CVA (cerebral vascular accident) I63.9 CAD (coronary artery disease) I25.10 Coronary Disease-Associated Artery/Lesion type: [place] artery [place] vs. transplanted heart: [place] heart Associated angina: without angina Hypertension I10 Hypertension type: essential hypertension (1) CAD (coronary artery disease) Coronary Disease-Associated Artery/Lesion type: [place] artery [place] vs. transplanted heart: [place] heart Associated angina: without angina Qualified Code(s): I25.10 - Atherosclerotic heart disease of [place] coronary artery without angina pectoris (2) Hypertension Hypertension type: essential hypertension Qualified Code(s): I10 - Essential (primary) hypertension
[2020-05-31 08:52] LABS: Basophils # (auto) 0.05 K/uL (0-0.2); Basophils % (auto) 0.6 %; Eosinophils # (auto) 0.34 K/uL (0-0.5); Eosinophils % (auto) 3.8 %; Hemoglobin 9.9 g/dL (12.0-16.0); Immature Granulocytes # (auto) 0.02 K/uL (0.00-0.02); Immature Granulocytes % (auto) 0.2 %; Lymphocytes # (auto) 0.88 K/uL (1.2-3.4); Lymphocytes % (auto) 9.8 %; Mean Corpuscular Hgb Conc 30.9 g/dL (32-36); Mean Corpuscular Volume 80.8 fL (80-100); Mean Platelet Volume 8.9 fL (7.4-10.4); Monocytes # (auto) 1.15 K/uL (0.11-0.59); Monocytes % (auto) 12.8 %; Neutrophils # (auto) 6.52 K/uL (1.4-6.5); Neutrophils % (auto) 72.8 %; Platelet Count 344 K/uL (130-400); RDW Coefficient of Variation 16.9 % (11.5-14.5); RDW Standard Deviation 50.1 fL (36.4-46.3); Red Blood Count 3.96 M/uL (4.2-5.4); White Blood Count 8.96 K/uL (4.8-10.8)
[2020-05-31] MEDS ORDERED: FERROUS SULFATE 325 MG TAB PO SCH (09:00)
[2020-05-31 09:50] LABS: Albumin Level 3.3 gm/dl (3.4-5.0); BUN Creatinine Ratio 15.4 (10-20); Calcium 9.4 mg/dl (8.5-10.1); Creatinine Clr Calc Pharmacy 54.5 ml/min; Est GFR (African American) 92.1; Est GFR (Non-African American) 79.4; Potassium 3.6 mmol/L (3.5-5.1)
[2020-05-31 10:03] LABS: Bilirubin,Total 0.6 mg/dl (0.2-1); Globulin 3.4 gm/dl (2.5-4.0); Total Protein 6.7 gm/dl (6.4-8.2)
[2020-06-01 06:37] LABS: Hematocrit (blood only) 29.6 % (37-47); Hemoglobin 9.2 g/dL (12.0-16.0); Mean Corpuscular Hemoglobin 25.1 pg (25-34); Mean Corpuscular Hgb Conc 31.1 g/dL (32-36); Mean Corpuscular Volume 80.7 fL (80-100); Mean Platelet Volume 8.7 fL (7.4-10.4); Platelet Count 322 K/uL (130-400); RDW Coefficient of Variation 17.2 % (11.5-14.5); RDW Standard Deviation 51.2 fL (36.4-46.3); Red Blood Count 3.67 M/uL (4.2-5.4); White Blood Count 7.72 K/uL (4.8-10.8)
[2020-06-01 07:12] LABS: BUN Creatinine Ratio 20.9 (10-20); Calcium 8.9 mg/dl (8.5-10.1); Creatinine Clr Calc Pharmacy 59.1 ml/min; Est GFR (Non-African American) 81.1; Potassium 3.7 mmol/L (3.5-5.1)
[2020-06-01] MEDS: DOCUSATE SODIUM 100 MG CAP PO SCH ×2 (08:49→23:05)
[2020-06-01] MEDS: amLODIPine BESYLATE 5 MG TAB PO SCH (08:50)
[2020-06-01] MEDS: FUROSEMIDE 20 MG TAB PO SCH (08:50)
[2020-06-01] MEDS: FERROUS SULFATE 325 MG TAB PO SCH ×2 (08:50→23:05)
[2020-06-01] MEDS: POLYETHYLENE (MIRALAX) 17 GM PACK PO SCH (08:50)
[2020-06-01] MEDS: PRAVASTATIN SOD 10 MG TAB PO SCH (08:51)
[2020-06-01] MEDS: ATENOLOL 25 MG TABLET PO SCH (08:51)
[2020-06-01] MEDS: ACETAMINOPHEN 500 MG TAB PO SCH ×3 (08:51→23:05)
[2020-06-01] MEDS: PANTOprazole 40 MG TAB PO SCH ×2 (08:52→23:05)
[2020-06-01] MEDS: LIDOCAINE 5% 1 PATCH TD SCH (08:53)
--- NOTE | 2020-06-01 08:55 | Hospitalist Progress Note ---
Date of Service June 01, 2020 Assessment & Plan (1) Anemia: secondary to NSAID/ASA/Plavix use (stent >1 year ago) s/p 2 units PRBC s/p EGD with non-bleeding ulcers PPI BID for 6 weeks h/h stable but decreased to 9.2/29.6 Review of prior testing iron panel c/w iron deficiency anemia with iron low at 17 and ferritin low at 8.6 (MCV still 80.7) Will given Venofer x 1 today Continue oral supplementation at discharge and rec repeat CBC in next week to ensure stability Plans for d/c to [facility] tomorrow -- will check CBC (2) Gastric ulcer: post EGD on 05/[address] Shanks with normal esophagus, medium hiatal hernia, non-bleeding gastric ulcers without no stigmata of bleeding. Biopsied -- mild chronic gastritis. Negative for H. pylori Protonix BID for the next 8 weeks and then once daily -- continue this at discharge (patient not previously on PPI therapy REGISTERED NURSES) Instructed to avoid NSAIDs. D/c ASA and continue with Plavix alone given bleeding CBC in AM (3) CVA (cerebral vascular accident): Pt with most recent hx in 04/2018 Stopped ASA and Plavix during admission Pt will need to restart anti-platelet therapy on discharge with stabilization of anemia -- would utilize Plavix given ulcer CBC ordered in am (4) CAD (coronary artery disease): Review of previous scanned in records shows a h/o acute [place] with stent placement in RCA in 1999 Hold asa/plavix for now secondary to gi bleed as above Continue atenolol Would send on Plavix alone at d/c (5) Hypertension: Continue current medications BP stable 122/71 Dispo: plans for [facility] at d/c tomorrow They did not have bed available today Admission and Anticipated Discharge Date Admission Date: May 28, 2020 Subjective Patient evaluated this morning. Doing well. No complaints. Discussed giving dose of venofer today while waiting for bed at [facility]. No bleeding reported, chest pain, shortness of breath, headache, fever, chills, abdominal pain, nausea or dysuria. Plans for d/c tomorrow. Questions/concerns addressed at this time. Review of Systems Review of Systems: All systems reviewed & are unremarkable except as noted in HPI & below Physical Exam Constitutional: WD/WN, vitals as above comfortable; no acute distress Eyes: + anicteric sclerae and PERRL Neck: normal visual inspection and trachea midline Respiratory: normal respiratory effort, lungs clear to auscultation Cardiovascular: RRR, no murmur, no edema Gastrointestinal (Abdomen): normal bowel sounds, soft, nontender, no hepatosplenomegaly Skin: general pallor cool, dry Psychiatric: Orientation: alert, oriented to person, oriented to place and cooperative; + not oriented to time Eye Contact: good eye contact Results & Data Results & Data ([facility]) Vital Signs (Past 12 Hours) Vital Signs Temp Pulse Pulse Resp BP Pulse Ox 06/01/20 07:25 76 06/01/20 07:00 37.0 C 86 16 134/75 95 06/01/20 04:00 36.6 C 95 H 18 127/74 95 05/31/20 23:34 36.5 C 74 20 126/71 96 Laboratory Results 06/01/20 06/01/20 05/31/20 Range/Units 06:12 06:12 07:47 WBC 7.72 (4.8-10.8) K/uL RBC 3.67 L (4.2-5.4) M/uL Hgb 9.2 L (12.0-16.0) g/dL Hct 29.6 L (37-47) % MCV 80.7 (80-100) fL MCH 25.1 (25-34) pg MCHC 31.1 L (32-36) g/dL RDW Std Deviation 51.2 H (36.4-46.3) fL RDW Coeff of Dorota 17.2 H (11.5-14.5) % Plt Count 322 (130-400) K/uL MPV 8.7 (7.4-10.4) fL Sodium 138 138 (136-145) mmol/L Potassium 3.7 3.6 (3.5-5.1) mmol/L Chloride 106 106 (98-107) mmol/L Carbon Dioxide 26 24 (21-32) mmol/L Anion Gap 6.0 8.0 (3-11) BUN 13 10 (7-18) mg/dl Creatinine 0.62 0.66 (0.6-1.2) mg/dl Est Cr Clr Drug Dosing 59.1 54.5 ml/min Est GFR ( Amer) 94.0 92.1 Est GFR (Non-Af Amer) 81.1 79.4 BUN/Creatinine Ratio 20.9 H 15.4 (10-20) Glucose 99 81 (70-99) mg/dl Calcium 8.9 9.4 (8.5-10.1) mg/dl Total Bilirubin 0.6 (0.2-1) mg/dl AST 12 L (15-37) U/L ALT 11 L (12-78) U/L Alkaline Phosphatase 66 (45-117) U/L Total Protein 6.7 (6.4-8.2) gm/dl Albumin 3.3 L (3.4-5.0) gm/dl Globulin 3.4 (2.5-4.0) gm/dl Albumin/Globulin Ratio 1.0 (0.9-2) PG Care Time/CCT Total # of Minutes Spent Total Time Spent with Patient: Total time spent is greater than 50% in coordination of care (as documented) at patient's floor/unit and/or counseling patient: Coding Level of Care Code 96721 Subseq Hosp Care Lvl 2 Diagnoses Anemia D64.9 Gastric ulcer K25.9 CVA (cerebral vascular accident) I63.9 CAD (coronary artery disease) I25.10 Associated angina: without angina Coronary Disease-Associated Artery/Lesion type: [place] artery [place] vs. transplanted heart: [place] heart Hypertension I10 Hypertension type: essential hypertension (1) CAD (coronary artery disease) Associated angina: without angina Coronary Disease-Associated Artery/Lesion type: [place] artery [place] vs. transplanted heart: [place] heart Qualified Code(s): I25.10 - Atherosclerotic heart disease of [place] coronary artery without angina pectoris (2) Hypertension Hypertension type: essential hypertension Qualified Code(s): I10 - Essential (primary) hypertension
[2020-06-01] MEDS ORDERED: IRON SUCROSE 200 MG in 0.9 % SODIUM CHLORIDE 100 ML IV ONE (10:00)
[2020-06-01] MEDS ORDERED: bisacodyL 5 MG TABEC PO ONE (14:52)
[2020-06-01 16:16] LABS: Appearance Urine Cloudy (Clear); Bacteria Urine Automated 3+ (Negative); Bilirubin Urine Negative (Negative); Blood Urine Negative (Negative); Cast Urine Automated 0 /lpf (0-5); Color Urine Yellow; Glucose Urine UA Negative (Negative); Ketones Urine Negative (Negative); Leukocyte Esterase Urine 2+ (Negative); Nitrite Urine Negative (Negative); Protein Urine Negative (Negative); Specific Gravity Urine 1.012 (1.000-1.030); Urobilinogen Urine Negative (Negative)
[2020-06-02 07:48] LABS: Hematocrit (blood only) 31.5 % (37-47); Hemoglobin 9.6 g/dL (12.0-16.0); Mean Corpuscular Hemoglobin 24.8 pg (25-34); Mean Corpuscular Hgb Conc 30.5 g/dL (32-36); Mean Corpuscular Volume 81.4 fL (80-100); Mean Platelet Volume 8.8 fL (7.4-10.4); Platelet Count 322 K/uL (130-400); RDW Coefficient of Variation 17.8 % (11.5-14.5); RDW Standard Deviation 52.6 fL (36.4-46.3); Red Blood Count 3.87 M/uL (4.2-5.4); White Blood Count 6.42 K/uL (4.8-10.8)
[2020-06-02] MEDS: DOCUSATE SODIUM 100 MG CAP PO SCH ×2 (08:04→21:10)
[2020-06-02] MEDS: FERROUS SULFATE 325 MG TAB PO SCH ×2 (08:05→21:10)
[2020-06-02] MEDS: PRAVASTATIN SOD 10 MG TAB PO SCH (08:05)
[2020-06-02] MEDS: amLODIPine BESYLATE 5 MG TAB PO SCH (08:05)
[2020-06-02] MEDS: PANTOprazole 40 MG TAB PO SCH ×2 (08:05→21:11)
[2020-06-02] MEDS: FUROSEMIDE 20 MG TAB PO SCH (08:05)
[2020-06-02] MEDS: POLYETHYLENE (MIRALAX) 17 GM PACK PO SCH (08:05)
[2020-06-02] MEDS: ACETAMINOPHEN 500 MG TAB PO SCH ×4 (08:06→21:19)
[2020-06-02] MEDS: ATENOLOL 25 MG TABLET PO SCH (08:06)
[2020-06-02] MEDS: LIDOCAINE 5% 1 PATCH TD SCH (08:06)
--- NOTE | 2020-06-02 08:09 | Hospitalist Progress Note ---
Date of Service June 02, 2020 Assessment & Plan (1) Bacteriuria with pyuria: 1-17 UA with 10-20 epis, 5-10 WBC, 2+ LE, 3+ bacteria 1-18 Concern that UA yesterday was contaminated, so repeating UA with catheterized sample today Repeat UA still with WBC, so will cover with cipro due to PCN allergy awaiting culture results prior to discharge (2) Anemia: 1-13 Hg 5 secondary to NSAID/ASA/Plavix use (stent >1 year ago) s/p 2 units PRBC s/p EGD with non-bleeding ulcers PPI BID for 8 weeks h/h stable but decreased to 9.2/29.6 Review of prior testing iron panel c/w iron deficiency anemia with iron low at 17 and ferritin low at 8.6 (MCV still 80.7) Will given Venofer x 1 today Continue oral supplementation at discharge and rec repeat CBC in next week to ensure stability 1-18 Hg 9.6, stable Plans for d/c to [facility] 1- repeat CBC in am (3) Gastric ulcer: post EGD on 05/[address] Shanks with normal esophagus, medium hiatal hernia, non-bleeding gastric ulcers without no stigmata of bleeding. Biopsied -- mild chronic gastritis. Negative for H. pylori Protonix BID for the next 8 weeks and then once daily -- continue this at discharge (patient not previously on PPI therapy [employer]) Instructed to avoid NSAIDs. D/c ASA and continue with Plavix alone given bleeding CBC in AM (4) CAD (coronary artery disease): Review of previous scanned in records shows a h/o acute [place] with stent placement in RCA in 1999 Hold asa/plavix for now secondary to gi bleed as above Continue atenolol Would send on Plavix alone at d/c (5) Hypertension: Continue current medications BP stable 122/71 (6) CVA (cerebral vascular accident): Pt with most recent hx in 04/2018 Stopped ASA and Plavix during admission Pt will need to restart anti-platelet therapy on discharge with stabilization of anemia -- would utilize Plavix given ulcer Dispo: plans for [facility] at d/c tomorrow They did not have bed available today Admission and Anticipated Discharge Date Admission Date: May 28, 2020 Subjective Patient teary, crying to me because she is worried about her granddaughter. No specific reason. Stated she was worried to infect her grand-daughter with her disease. I explained to her that she did not have COVID, nor was she contagious. She denies prior GI bleed. Denies melena or vomiting. Denies dysuria or suprapubic pain. No fevers. States that she wants to be discharged soon. Understands her urine culture is still pending. Review of Systems Constitutional: no fever, no chills, no fatigue, no weakness, no anorexia, no weight loss and no weight gain Ear, Nose, Mouth, Throat: no nasal congestion, no sore throat and no dysphagia Respiratory: no cough and no dyspnea Cardiovascular: no chest pain, no dyspnea on exertion, no orthopnea and no palpitations Gastrointestinal: no abdominal pain, no nausea, no vomiting, no hematemesis, no dysphagia, no constipation, no diarrhea/loose stools, no blood in stools and no melena Genitourinary: no dysuria, no urinary frequency, no hematuria and no flank pain Musculoskeletal: no back pain, no joint pain, no myalgia and no muscle weakness Integumentary: no rash, no lesions, no skin ulcer, no erythema, no dry skin and no pruritus Neurologic: no falls, no localized weakness, no generalized weakness, no numbness, no paresthesia, no tremor(s) and no headache(s) Psychiatric: + anxiety; no depression, no suicidal ideation and no homicidal ideation Endocrine: no cold intolerance and no heat intolerance Hematologic / Lymphatic: no easy bleeding and no easy bruising Physical Exam Constitutional: well developed and well nourished; no acute distress Eyes: PERRL, conjunctivae normal, anicteric sclerae ENMT: Mouth: oral mucous membranes not dry Respiratory: normal respiratory effort; no respiratory distress and no labored breathing Auscultation: lungs clear to auscultation bilaterally; no crackles, no rales, no rhonchi and no wheezes Cardiovascular: Rate/Rhythm: regular rate and regular rhythm Heart Sounds: no murmur and no cardiac rub Vessels: normal peripheral pulses and radial pulses present; no JVD Extremities: no edema Gastrointestinal (Abdomen): Inspection/Auscultation: abdomen normal to inspection and normal bowel sounds; abdomen not distended Percussion/Palpation: abdomen soft; abdomen nontender, no guarding, abdomen not rigid and no hepatosplenomegaly Musculoskeletal: Head/Neck/Chest: normocephalic and head atraumatic Spine: no cervical spinal tenderness, no cervical muscular tenderness, no thoracic spinal tenderness and no lumbar spinal tenderness Skin: no rashes, warm and dry Neurologic: CN's II-XI intact bilaterally and moves all extremities Motor/Sensory: no tremor and no sensory deficit Psychiatric: Orientation: alert, oriented to person, oriented to place and oriented to time Apperance: appropriately groomed; not disheveled Affect: + anxious affect and + tearful affect; + affect not euthymic Genitourinary: no CVA tenderness no Cummings catheter Results & Data Results & Data ([facility]) Vital Signs (Past 12 Hours) Vital Signs Temp Pulse Pulse Resp BP Pulse Ox 06/02/20 06:59 83 06/02/20 03:58 36.5 C 86 18 145/81 H 94 06/01/20 23:00 36.3 C L 84 18 116/75 95 Laboratory Results Abnormal lab results 06/01/20 06/02/20 06/02/20 Range/Units 16:03 06:50 06:50 RBC 3.87 L (4.2-5.4) M/uL Hgb 9.6 L (12.0-16.0) g/dL Hct 31.5 L (37-47) % MCH 24.8 L (25-34) pg MCHC 30.5 L (32-36) g/dL RDW Std Deviation 52.6 H (36.4-46.3) fL RDW Coeff of Dorota 17.8 H (11.5-14.5) % Creatinine 0.55 L (0.6-1.2) mg/dl Urine Appearance Cloudy A (Clear) Urine Protein (Negative) Urine Blood (Negative) Ur Leukocyte Esterase 2+ H (Negative) Urine WBC (Auto) 5-10 H (0-5) /hpf Urine RBC (Auto) 5-10 H (0-4) /hpf U Hyaline Cast (Auto) (0-5) /lpf U Epithel Cells (Auto) 10-20 H (0-5) /lpf Urine Bacteria (Auto) 3+ H (Negative) 06/02/20 Range/Units 08:54 RBC (4.2-5.4) M/uL Hgb (12.0-16.0) g/dL Hct (37-47) % MCH (25-34) pg MCHC (32-36) g/dL RDW Std Deviation (36.4-46.3) fL RDW Coeff of Dorota (11.5-14.5) % Creatinine (0.6-1.2) mg/dl Urine Appearance Turbid A (Clear) Urine Protein Trace H (Negative) Urine Blood 1+ H (Negative) Ur Leukocyte Esterase 3+ H (Negative) Urine WBC (Auto) >30 H (0-5) /hpf Urine RBC (Auto) (0-4) /hpf U Hyaline Cast (Auto) 5-10 H (0-5) /lpf U Epithel Cells (Auto) >30 H (0-5) /lpf Urine Bacteria (Auto) 4+ H (Negative) Medications Administered Current Inpatient Medications Acetaminophen (Acetaminophen 325 Mg Tab) 650 mg PO Q4H PRN PRN Reason: Moderate Pain Stop: 06/27/20 19:39 Acetaminophen (Acetaminophen 500 Mg Tab) 500 mg PO TID [facility] Stop: 06/28/20 08:59 Last Admin: 06/02/20 14:08 Dose: 500 mg Documented by: Amlodipine Besylate (Amlodipine Besylate 5 Mg Tab) 2.5 mg PO DAILY [facility] Stop: 06/29/20 08:59 Last Admin: 06/02/20 08:05 Dose: 2.5 mg Documented by: Atenolol (Atenolol 25 Mg Tablet) 25 mg PO DAILY [facility] Stop: 06/29/20 08:59 Last Admin: 06/02/20 08:06 Dose: 25 mg Documented by: Ciprofloxacin (Ciprofloxacin 500 Mg Tab) 500 mg PO BID [facility]; Protocol Stop: 06/08/20 00:01 Docusate Sodium (Docusate Sodium 100 Mg Cap) 100 mg PO DAILY PRN PRN Reason: Constipation Stop: 06/27/20 21:32 Docusate Sodium (Docusate Sodium 100 Mg Cap) 100 mg PO BID [facility] Stop: 06/28/20 20:59 Last Admin: 06/02/20 08:04 Dose: 100 mg Documented by: Ferrous Sulfate (Ferrous Sulfate 325 Mg Tab) 325 mg PO BID [facility] Stop: 07/01/20 08:59 Last Admin: 06/02/20 08:05 Dose: 325 mg Documented by: Furosemide (Furosemide 20 Mg Tab) 20 mg PO DAILY [facility] Stop: 06/28/20 08:59 Last Admin: 06/02/20 08:05 Dose: 20 mg Documented by: Lidocaine (Lidocaine 5% 1 Patch) 1 patch TD QAM [facility] Stop: 06/27/20 20:29 Last Admin: 06/02/20 08:06 Dose: Not Given Documented by: Miscellaneous (Remove Lidoderm Patch) 1 ea N/A DAILY@2100 [facility] Stop: 06/28/20 00:00 Last Admin: 06/01/20 23:05 Dose: 1 ea Documented by: Ondansetron HCl (Ondansetron Inj 2 Mg/Ml 2 Ml Vial) 4 mg IV Q4H PRN PRN Reason: Nausea And Vomiting Stop: 06/27/20 19:39 Last Admin: 05/29/20 20:56 Dose: 4 mg Documented by: Pantoprazole Sodium (Pantoprazole 40 Mg Tab) 40 mg PO BID [facility] Stop: 06/29/20 20:59 Last Admin: 06/02/20 08:05 Dose: 40 mg Documented by: Polyethylene Glycol (Polyethylene (Miralax) 17 Gm Pack) 17 gm PO DAILY [facility] Stop: 06/29/20 08:59 Last Admin: 06/02/20 08:05 Dose: 17 gm Documented by: Pravastatin Sodium (Pravastatin Sod 10 Mg Tab) 10 mg PO DAILY [facility] Stop: 06/28/20 08:59 Last Admin: 06/02/20 08:05 Dose: 10 mg Documented by: PG Care Time/CCT Total # of Minutes Spent Total Time Spent with Patient: Total time spent is greater than 50% in coordination of care (as documented) at patient's floor/unit and/or counseling patient: Coding Level of Care Code 90352 Subseq Hosp Care Lvl 2 Diagnoses Bacteriuria with pyuria R82.71; R82.81 Anemia D62 Anemia type: other cause Other causes of anemia: acute posthemorrhagic Gastric ulcer K25.4 Gastric ulcer chronicity: unspecified ulcer chronicity Gastric ulcer complication status: with hemorrhage CAD (coronary artery disease) I25.10 Associated angina: without angina Coronary Disease-Associated Artery/Lesion type: [place] artery [place] vs. transplanted heart: [place] heart Hypertension I10 Hypertension type: essential hypertension CVA (cerebral vascular accident) I63.9 (1) CAD (coronary artery disease) Associated angina: without angina Coronary Disease-Associated Artery/Lesion type: [place] artery [place] vs. transplanted heart: [place] heart Qualified Code(s): I25.10 - Atherosclerotic heart disease of [place] coronary artery without angina pectoris (2) Anemia Anemia type: other cause Other causes of anemia: acute posthemorrhagic Qualified Code(s): D62 - Acute posthemorrhagic anemia (3) Gastric ulcer Gastric ulcer chronicity: unspecified ulcer chronicity Gastric ulcer complication status: with hemorrhage Qualified Code(s): K25.4 - Chronic or unspecified gastric ulcer with hemorrhage (4) Hypertension Hypertension type: essential hypertension Qualified Code(s): I10 - Essential (primary) hypertension
[2020-06-02 08:15] LABS: Calcium 9.3 mg/dl (8.5-10.1); Est GFR (African American) 97.7; Est GFR (Non-African American) 84.3; Potassium 3.8 mmol/L (3.5-5.1)
[2020-06-02 09:06] LABS: Appearance Urine Turbid (Clear); Bacteria Urine Automated 4+ (Negative); Bilirubin Urine Negative (Negative); Blood Urine 1+ (Negative); Color Urine Yellow; Epithelial Cell Urine Auto >30 /lpf (0-5); Glucose Urine UA Negative (Negative); Ketones Urine Negative (Negative); Leukocyte Esterase Urine 3+ (Negative); Nitrite Urine Negative (Negative); Protein Urine Trace (Negative); RBC Urine Automated 0-4 /hpf (0-4); Specific Gravity Urine 1.013 (1.000-1.030); Urobilinogen Urine Negative (Negative); WBC Urine Automated >30 /hpf (0-5); pH Urine 7.5 (4.5-7.5)
[2020-06-02] MEDS: CIPROFLOXACIN 500 MG TAB PO SCH (21:10)
--- NOTE | 2020-06-03 07:19 | Hospitalist Progress Note ---
Date of Service June 03, 2020 Assessment & Plan (1) Anemia: 1-13 Hg 5 secondary to NSAID/ASA/Plavix use (stent >1 year ago) s/p 2 units PRBC s/p EGD with non-bleeding ulcers PPI BID for 8 weeks h/h stable but decreased to 9.2/29.6 Review of prior testing iron panel c/w iron deficiency anemia with iron low at 17 and ferritin low at 8.6 (MCV still 80.7) Will given Venofer x 1 today Continue oral supplementation at discharge and rec repeat CBC in next week to ensure stability 1-18 Hg 9.6, stable 1-19 Hg 9.7, continues to be stable repeat CBC in one week (2) Gastric ulcer: post EGD on 05/[address] Shanks with normal esophagus, medium hiatal her eryn, non-bleeding gastric ulcers without no stigmata of bleeding. Biopsied -- mild chronic gastritis. Negative for H. pylori Protonix BID for the next 8 weeks and then once daily -- continue this at discharge (patient not previously on PPI therapy) Instructed to avoid NSAIDs Stop ASA and continue with Plavix alone given bleeding (3) Complicated UTI (urinary tract infection): 1-17 UA with 10-20 epis, 5-10 WBC, 2+ LE, 3+ bacteria 1-18 Concern that UA yesterday was contaminated, so repeating UA with catheterized sample today Repeat UA still with WBC, so will cover with cipro due to PCN allergy 1-19 urine culture with >100,000 CFU e. coli pansusceptible. Will continue ciprofloxacin for 5 days total (4) CAD (coronary artery disease): Review of previous scanned in records shows a h/o acute [place] with stent placement in RCA in 1999 Hold asa/plavix for now secondary to gi bleed as above Continue atenolol Would send on Plavix alone at d/c (5) Hypertension: Continue current medications BP stable 122/71 (6) CVA (cerebral vascular accident): Pt with most recent hx in 04/2018 Stopped ASA and Plavix during admission Pt will need to restart anti-platelet therapy on discharge with stabilization of anemia -- would utilize Plavix given ulcer Dispo: plans for [facility] Admission and Anticipated Discharge Date Admission Date: May 28, 2020 Subjective Denies dysuria. Endorsing urinary frequency and having accidents. Can not get to the toilet or bed [place] fast enough. No fever. No nausea or vomiting. Denies melena, no hematemesis. No dizziness or lethargy. Tolerated her breakfast. Patient doing well. W[facility]. Review of Systems Constitutional: no fever, no chills, no fatigue, no weakness, no anorexia, no weight loss and no weight gain Ear, Nose, Mouth, Throat: no nasal congestion, no sore throat and no dysphagia Respiratory: no cough and no dyspnea Cardiovascular: no chest pain, no dyspnea on exertion, no orthopnea and no palpitations Gastrointestinal: no abdominal pain, no nausea, no vomiting, no hematemesis, no dysphagia, no constipation, no diarrhea/loose stools, no blood in stools and no melena Genitourinary: no dysuria, no urinary frequency, no hematuria and no flank pain Musculoskeletal: no back pain, no joint pain, no myalgia and no muscle weakness Integumentary: no rash, no lesions, no skin ulcer, no erythema, no dry skin and no pruritus Neurologic: no falls, no localized weakness, no generalized weakness, no numbness, no paresthesia, no tremor(s) and no headache(s) Psychiatric: + anxiety; no depression, no suicidal ideation and no homicidal ideation Endocrine: no cold intolerance and no heat intolerance Hematologic / Lymphatic: no easy bleeding and no easy bruising Physical Exam Constitutional: well developed and well nourished; no acute distress Eyes: PERRL, conjunctivae normal, anicteric sclerae ENMT: Mouth: oral mucous membranes not dry Respiratory: normal respiratory effort; no respiratory distress and no labored breathing Auscultation: lungs clear to auscultation bilaterally; no crackles, no rales, no rhonchi and no wheezes Cardiovascular: Rate/Rhythm: regular rate and regular rhythm Heart Sounds: no murmur and no cardiac rub Vessels: normal peripheral pulses and radial pulses present; no JVD Extremities: no edema Gastrointestinal (Abdomen): Inspection/Auscultation: abdomen normal to inspection and normal bowel sounds; abdomen not distended Percussion/Palpation: abdomen soft; abdomen nontender, no guarding, abdomen not rigid and no hepatosplenomegaly Musculoskeletal: Head/Neck/Chest: normocephalic and head atraumatic Spine: no cervical spinal tenderness, no cervical muscular tenderness, no thoracic spinal tenderness and no lumbar spinal tenderness Skin: no rashes, warm and dry Neurologic: CN's II-XI intact bilaterally and moves all extremities Motor/Sensory: no tremor and no sensory deficit Psychiatric: Orientation: alert and cooperative Apperance: appropriately groomed; not disheveled Affect: + anxious affect; + affect not euthymic Genitourinary: no CVA tenderness Results & Data Results & Data ([facility]) Vital Signs (Past 12 Hours) Vital Signs Temp Pulse Pulse Resp BP Pulse Ox 06/03/20 02:31 36.3 C L 83 17 160/77 H 95 06/03/20 02:12 69 06/02/20 22:46 36.8 C 80 17 132/71 97 Laboratory Results Abnormal lab results 06/03/20 06/03/20 Range/Units 07:04 07:04 RBC 3.90 L (4.2-5.4) M/uL Hgb 9.7 L (12.0-16.0) g/dL Hct 32.1 L (37-47) % MCH 24.9 L (25-34) pg MCHC 30.2 L (32-36) g/dL RDW Std Deviation 54.3 H (36.4-46.3) fL RDW Coeff of Dorota 18.3 H (11.5-14.5) % Neut # (Auto) 7.84 H (1.4-6.5) K/uL Lymph # (Auto) 1.16 L (1.2-3.4) K/uL Sumner # (Auto) 1.20 H (0.11-0.59) K/uL Immature Gran # (Auto) 0.03 H (0.00-0.02) K/uL Creatinine 0.59 L (0.6-1.2) mg/dl Glucose 100 H (70-99) mg/dl AST 12 L (15-37) U/L ALT 9 L (12-78) U/L Albumin 3.1 L (3.4-5.0) gm/dl Medications Administered Current Inpatient Medications Acetaminophen (Acetaminophen 325 Mg Tab) 650 mg PO Q4H PRN PRN Reason: Moderate Pain Stop: 06/27/20 19:39 Last Admin: 06/03/20 05:57 Dose: 650 mg Documented by: Acetaminophen (Acetaminophen 500 Mg Tab) 500 mg PO TID [facility] Stop: 06/28/20 08:59 Last Admin: 06/03/20 08:04 Dose: 500 mg Documented by: Amlodipine Besylate (Amlodipine Besylate 5 Mg Tab) 2.5 mg PO DAILY [facility] Stop: 06/29/20 08:59 Last Admin: 06/03/20 08:04 Dose: 2.5 mg Documented by: Atenolol (Atenolol 25 Mg Tablet) 25 mg PO DAILY [facility] Stop: 06/29/20 08:59 Last Admin: 06/03/20 08:04 Dose: 25 mg Documented by: Ciprofloxacin (Ciprofloxacin 500 Mg Tab) 500 mg PO BID [facility]; Protocol Stop: 06/08/20 00:01 Last Admin: 06/03/20 08:04 Dose: 500 mg Documented by: Docusate Sodium (Docusate Sodium 100 Mg Cap) 100 mg PO DAILY PRN PRN Reason: Constipation Stop: 06/27/20 21:32 Docusate Sodium (Docusate Sodium 100 Mg Cap) 100 mg PO BID [facility] Stop: 06/28/20 20:59 Last Admin: 06/03/20 08:04 Dose: 100 mg Documented by: Ferrous Sulfate (Ferrous Sulfate 325 Mg Tab) 325 mg PO BID [facility] Stop: 07/01/20 08:59 Last Admin: 06/03/20 08:04 Dose: 325 mg Documented by: Furosemide (Furosemide 20 Mg Tab) 20 mg PO DAILY [facility] Stop: 06/28/20 08:59 Last Admin: 06/03/20 08:04 Dose: 20 mg Documented by: Lidocaine (Lidocaine 5% 1 Patch) 1 patch TD QAM [facility] Stop: 06/27/20 20:29 Last Admin: 06/03/20 08:03 Dose: Not Given Documented by: Miscellaneous (Remove Lidoderm Patch) 1 ea N/A DAILY@2100 [facility] Stop: 06/28/20 00:00 Last Admin: 06/02/20 21:11 Dose: Not Given Documented by: Ondansetron HCl (Ondansetron Inj 2 Mg/Ml 2 Ml Vial) 4 mg IV Q4H PRN PRN Reason: Nausea And Vomiting Stop: 06/27/20 19:39 Last Admin: 05/29/20 20:56 Dose: 4 mg Documented by: Pantoprazole Sodium (Pantoprazole 40 Mg Tab) 40 mg PO BID [facility] Stop: 06/29/20 20:59 Last Admin: 06/03/20 08:04 Dose: 40 mg Documented by: Polyethylene Glycol (Polyethylene (Miralax) 17 Gm Pack) 17 gm PO DAILY [facility] Stop: 06/29/20 08:59 Last Admin: 06/03/20 08:04 Dose: 17 gm Documented by: Pravastatin Sodium (Pravastatin Sod 10 Mg Tab) 10 mg PO DAILY [facility] Stop: 06/28/20 08:59 Last Admin: 06/03/20 08:10 Dose: 10 mg Documented by: PG Care Time/CCT Total # of Minutes Spent Total Time Spent with Patient: Total time spent is greater than 50% in coordination of care (as documented) at patient's floor/unit and/or counseling patient: Coding Level of Care Code 43167 Subseq Hosp Care Lvl 2 Diagnoses Anemia D62 Anemia type: other cause Other causes of anemia: acute posthemorrhagic Gastric ulcer K25.4 Gastric ulcer chronicity: unspecified ulcer chronicity Gastric ulcer complication status: with hemorrhage Complicated UTI (urinary tract infection) N39.0 CAD (coronary artery disease) I25.10 Associated angina: without angina Coronary Disease-Associated Artery/Lesion type: [place] artery [place] vs. transplanted heart: enterprise heart Hypertension I10 Hypertension type: essential hypertension CVA (cerebral vascular accident) I63.9 (1) CAD (coronary artery disease) Associated angina: without angina Coronary Disease-Associated Artery/Lesion type: [place] artery [place] vs. transplanted heart: [place] heart Qualified Code(s): I25.10 - Atherosclerotic heart disease of [place] coronary artery without angina pectoris (2) Anemia Anemia type: other cause Other causes of anemia: acute posthemorrhagic Qualified Code(s): D62 - Acute posthemorrhagic anemia (3) Gastric ulcer Gastric ulcer chronicity: unspecified ulcer chronicity Gastric ulcer complication status: with hemorrhage Qualified Code(s): K25.4 - Chronic or unspecified gastric ulcer with hemorrhage (4) Hypertension Hypertension type: essential hypertension Qualified Code(s): I10 - Essential (primary) hypertension
[2020-06-03 07:59] LABS: Basophils # (auto) 0.05 K/uL (0-0.2); Basophils % (auto) 0.5 %; Eosinophils # (auto) 0.31 K/uL (0-0.5); Eosinophils % (auto) 2.9 %; Hematocrit (blood only) 32.1 % (37-47); Hemoglobin 9.7 g/dL (12.0-16.0); Immature Granulocytes # (auto) 0.03 K/uL (0.00-0.02); Immature Granulocytes % (auto) 0.3 %; Lymphocytes # (auto) 1.16 K/uL (1.2-3.4); Mean Corpuscular Hemoglobin 24.9 pg (25-34); Mean Corpuscular Hgb Conc 30.2 g/dL (32-36); Mean Corpuscular Volume 82.3 fL (80-100); Mean Platelet Volume 8.7 fL (7.4-10.4); Monocytes % (auto) 11.3 %; Neutrophils # (auto) 7.84 K/uL (1.4-6.5); Platelet Count 331 K/uL (130-400); RDW Coefficient of Variation 18.3 % (11.5-14.5); RDW Standard Deviation 54.3 fL (36.4-46.3); White Blood Count 10.59 K/uL (4.8-10.8)
[2020-06-03] MEDS: LIDOCAINE 5% 1 PATCH TD SCH (08:03)
[2020-06-03] MEDS: DOCUSATE SODIUM 100 MG CAP PO SCH (08:04)
[2020-06-03] MEDS: FUROSEMIDE 20 MG TAB PO SCH (08:04)
[2020-06-03] MEDS: amLODIPine BESYLATE 5 MG TAB PO SCH (08:04)
[2020-06-03] MEDS: ACETAMINOPHEN 500 MG TAB PO SCH ×2 (08:04→13:32)
[2020-06-03] MEDS: PANTOprazole 40 MG TAB PO SCH (08:04)
[2020-06-03] MEDS: CIPROFLOXACIN 500 MG TAB PO SCH (08:04)
[2020-06-03] MEDS: POLYETHYLENE (MIRALAX) 17 GM PACK PO SCH (08:04)
[2020-06-03] MEDS: FERROUS SULFATE 325 MG TAB PO SCH (08:04)
[2020-06-03] MEDS: ATENOLOL 25 MG TABLET PO SCH (08:04)
[2020-06-03] MEDS: PRAVASTATIN SOD 10 MG TAB PO SCH (08:10)
[2020-06-03 08:30] LABS: Albumin Level 3.1 gm/dl (3.4-5.0); BUN Creatinine Ratio 16.5 (10-20); Calcium 9.5 mg/dl (8.5-10.1); Creatinine Clr Calc Pharmacy 61.6 ml/min; Est GFR (African American) 95.5; Est GFR (Non-African American) 82.4; Potassium 3.8 mmol/L (3.5-5.1)
[2020-06-03 08:36] LABS: Albumin Globulin Ratio 0.9 (0.9-2); Bilirubin,Total 0.4 mg/dl (0.2-1); Globulin 3.3 gm/dl (2.5-4.0); Phosphorus 3.4 mg/dl (2.5-4.9); Total Protein 6.4 gm/dl (6.4-8.2)
--- NOTE | 2020-06-03 13:28 | Discharge Summary ---
Date of Service June 03, 2020 Admission HPI Per Admitting Provider This is an 85 yo F with PMHx of CAD, HTN, pacemaker, HLD, CVA, dysarthria, hx UTI, sarcopenia and hyponatremia who presents with abdominal pain and found to have anemia with Hgb of 5.0. Her daughter is present with her at bedside and supports the history. Patient notes that she has had been having abdominal pain for the past week or so, and has also been chronically constipated, and cannot recall the last time that she had a bowel movement. Per ER report patient is guaiac positive with melena on rectal exam. Patient denies any diminished appetite, oral intake is fine, no nausea or vomiting. Patient's daughter had her home for [place] and at that point time the patient was not near as pale as she is today. She has been taking medications including aspirin 81 mg, Plavix 75 mg and at least 400 mg of ibuprofen a day for right frozen shoulder, occasionally 600 mg daily. Patient typically ambulates with the use of a walker but when she is not feeling up to it uses a wheelchair. Patient's daughter had her home for [place] and at that point time the patient was not near as pale as she is today. She admits to lightheadedness and dizziness when going from a sitting to standing position. Patient reports that her last colonoscopy was within the past 10 years but had this done in [place], it was normal to her recollection. Patient is new to the area as she just moved here from [place] in December 2019 and follows with PCP at [facility]. Hemoglobin was found to be 5.0 in the ER, transfusion PRBC x2 units ordered. Likely an upper GI bleed from use of NSAIDs plus antiplatelet medications. CT of the abdomen/pelvis negative for acute findings. Consult GI. Principal Diagnosis anemia due to acute gastrointestinal bleeding Discharge Exam Constitutional well developed and well nourished; no acute distress Eyes PERRL, conjunctivae normal, anicteric sclerae ENMT Mouth: oral mucous membranes not dry Respiratory normal respiratory effort; no respiratory distress and no labored breathing Auscultation: lungs clear to auscultation bilaterally; no crackles, no rales, no rhonchi and no wheezes Cardiovascular Rate/Rhythm: regular rate and regular rhythm Heart Sounds: no murmur and no cardiac rub Vessels: normal peripheral pulses and radial pulses present; no JVD Extremities: no edema Gastrointestinal (Abdomen) Inspection/Auscultation: abdomen normal to inspection and normal bowel sounds; abdomen not distended Percussion/Palpation: abdomen soft; abdomen nontender, no guarding, abdomen not rigid and no hepatosplenomegaly Musculoskeletal Head/Neck/Chest: normocephalic and head atraumatic Spine: no cervical spinal tenderness, no cervical muscular tenderness, no thoracic spinal tenderness and no lumbar spinal tenderness Skin no rashes, warm and dry Neurologic CN's II-XI intact bilaterally and moves all extremities Motor/Sensory: no tremor and no sensory deficit Psychiatric Orientation: alert and cooperative Apperance: appropriately groomed; not disheveled Affect: + anxious affect; + affect not euthymic Genitourinary no CVA tenderness Discharge Data Allergies Allergy/AdvReac Type Severity Reaction Status Date / Time codeine Allergy Unknown . Verified 05/28/20 18:01 Penicillins Allergy Joint Pain Verified 05/28/20 18:01 simvastatin Allergy . Verified 05/28/20 18:01 clams AdvReac Mild Nausea Verified 05/28/20 18:01 tramadol AdvReac Unknown Unknown Verified 05/28/20 18:01 wine(red) Allergy Severe Unknown Uncoded 05/28/20 18:01 Consultations 05/28/20 19:17 Consult Health Information Management Stat 05/28/20 19:40 Consult Case Management - Discharge Planning Routine Consult Gastroenterology Routine Procedures Performed Operation Date: 05/29/20 12:45 Actual Procedures p EGD Biopsy Cytology - Dileep Shanks, DO Ordered Studies 05/28/20 15:18 CT abd pelvis wo con Stat Hospital Course (1) Anemia: 1-13 Hg 5 secondary to NSAID/ASA/Plavix use (stent >1 year ago) s/p 2 units PRBC s/p EGD with non-bleeding ulcers PPI BID for 8 weeks h/h stable but decreased to 9.2/29.6 Review of prior testing iron panel c/w iron deficiency anemia with iron low at 17 and ferritin low at 8.6 (MCV still 80.7) Will given Venofer x 1 today Continue oral supplementation at discharge and rec repeat CBC in next week to ensure stability 1-18 Hg 9.6, stable 1-19 Hg 9.7, continues to be stable repeat CBC in one week (2) Gastric ulcer: post EGD on 05/[address] Shanks with normal esophagus, medium hiatal hernia, non-bleeding gastric ulcers without no stigmata of bleeding. Biopsied -- mild chronic gastritis. Negative for H. pylori Protonix BID for the next 8 weeks and then once daily -- continue this at discharge (patient not previously on PPI therapy) Instructed to avoid NSAIDs Stop ASA and continue with Plavix alone given bleeding (3) Complicated UTI (urinary tract infection): 1-17 UA with 10-20 epis, 5-10 WBC, 2+ LE, 3+ bacteria 1-18 Concern that UA yesterday was contaminated, so repeating UA with catheterized sample today Repeat UA still with WBC, so will cover with cipro due to PCN allergy 1- urine culture with >100,000 CFU e. coli pansusceptible. Will continue ciprofloxacin for 5 days total (4) CAD (coronary artery disease): Review of previous scanned in records shows a h/o acute [place] with stent placement in RCA in 1999 Hold asa/plavix for now secondary to gi bleed as above Continue atenolol Would send on Plavix alone at d/c (5) Hypertension: Continue current medications BP stable 122/71 (6) CVA (cerebral vascular accident): Pt with most recent hx in 04/2018 Stopped ASA and Plavix during admission Pt will need to restart anti-platelet therapy on discharge with stabilization of anemia -- would utilize Plavix given ulcer Dispo: plans for [facility] [place] Total Time Total Time Spent Total Time Spent (In Minutes): 55 minutes Total Time Includes: Examination of the Patient, Discharge Planning, Medication Reconciliation and Communication With Other Providers Discharge Plan Discharge Items Patient Disposition: Transfer Shelter Fac Reason For Visit: ANEMIC Discharge Diagnosis: 1. anemia 2. gastric ulcer 3. complicated UTI 4. CAD Activity: Resume your previous activity Non-emergency contact: Primary Care Provider Call non-emergency contact if: you have any medication questions Follow-up/Referrals: Dileep Shanks DO [Physician] - (Follow up in clinic in 8 weeks) Sumit Reno [place] [Primary Care Provider] - (within one week) Diet: Regular Diet Texture: Dental soft (bite-sized) Addtl Attending Provider Instructions: 1. Continue pantoprazole 40mg twice daily for 8 weeks through July 29 2. On July 30, start pantoprazole 40mg once daily 3. Resume plavix on June 06. This is one week after EGD. 4. Stop aspirin, stop NSAIDs 5. Continue to take ciprofloxacin twice daily for 5 days, next dose is due Jun 03 evening 6. Continue PT and OT 7. Have repeat CBC and BMP performed on Jun 09 8. Follow up with gastroenterology 9. Follow up with primary care within one week Pending Studies at Discharge: No Stand-Alone Forms: My [facility] Skilled Items Patient informed of condition?: Yes DNR: Yes Discharge Level of Care: Skilled Communicable Disease: No Discharge Prognosis: Stable Lines: None Urinary Catheter: No Medications and DC Order Prescriptions: New ciprofloxacin HCl 500 mg Tablet 500 mg PO BID 3 Days Qty: 9 RF: 0 pantoprazole 40 mg Tablet,Delayed Release (Dr/Ec) 40 mg PO BID 56 Days Qty: 112 RF: 0 ciprofloxacin [Cipro] 500 mg/5 mL suspension,microcapsule recon 500 mg PO BID 5 Days Qty: 50 RF: 0 pantoprazole 40 mg tablet,delayed release (DR/EC) 40 mg PO BID 56 Days Qty: 112 RF: 0 Continued amlodipine 2.5 mg tablet 2.5 mg PO DAILY RF: 0 methenamine hippurate 1 gram tablet 1 g PO BID RF: 0 multivitamin Tablet 1 tab PO DAILY RF: 0 polyethylene glycol 3350 8.5 gram powder in packet 8.5 g PO DAILY RF: 0 atenolol 25 mg Tablet 25 mg PO DAILY RF: 0 furosemide 20 mg Tablet 20 mg PO DAILY RF: 0 acetaminophen 500 mg Tablet 1,000 mg PO TID RF: 0 docusate sodium [Colace] 100 mg Capsule 100 mg PO DAILY PRN (Reason: Constipation) RF: 0 Systane (propylene glycol) 0.4-0.3 % Drops 1 drp OPB QAM RF: 0 clopidogrel 75 mg tablet 75 mg PO DAILY Qty: 0 RF: 0 Discontinued aspirin 81 mg tablet,chewable 81 mg PO DAILY RF: 0 ibuprofen 200 mg Tablet 200 mg PO TID RF: 0 guaifenesin 100 mg/5 mL Syrup 200 mg PO Q8H PRN (Reason: Cough) RF: 0 Discharge Orders: Discharge Order (Routine); Ordered 06/03/20 Ordered By: Hailey Marti Admission Data Admit Date/Time: 05/28/20 18:01 Attending Provider: Hailey Marti Admit Provider: Marichuy Reed Primary Care Provider: Sumit Ren[place] Other Providers: Dileep Shanks Coding Level of Care Code D/C Day Management >30 mins Diagnoses Anemia D62 Anemia type: other cause Other causes of anemia: acute posthemorrhagic Gastric ulcer K25.4 Gastric ulcer chronicity: unspecified ulcer chronicity Gastric ulcer complication status: with hemorrhage Complicated UTI (urinary tract infection) N39.0 CAD (coronary artery disease) I25.10 Coronary Disease-Associated Artery/Lesion type: [place] artery [place] vs. transplanted heart: [place] heart Associated angina: without angina Hypertension I10 Hypertension type: essential hypertension CVA (cerebral vascular accident) I63.9
== END 2020-06-03 14:15 | DRG 378 ==
LOC: ED 15:02 → SUATTDRO 18:01 → 2N 18:01
DX: Z95.0 Presence of cardiac pacemaker; K92.2 Gastrointestinal hemorrhage, unspecified; N95.2 Postmenopausal atrophic vaginitis; D62 Acute posthemorrhagic anemia; R33.9 Retention of urine, unspecified; Z66 Do not resuscitate; R47.01 Aphasia; N39.0 Urinary tract infection, site not specified; I10 Essential (primary) hypertension; Z79.82 Long term (current) use of aspirin; K59.00 Constipation, unspecified; E78.5 Hyperlipidemia, unspecified; R82.71 Bacteriuria; I25.10 Atherosclerotic heart disease of native coronary artery without angina pectoris